=== PATIENT | male | born 1930 | race Caucasian/White ===

== ENCOUNTER 2018-05-21 15:22 | Inpatient (IN) | payer MEDICARE, OTHER ==
[2018-05-21 17:17] LABS: INR-International Normal Ratio 1.3; PTT 33.4 SEC (22.9-36.1); Prothrombin Time 15.9 SEC (12.0-14.7)
--- NOTE | 2018-05-21 17:30 | RAD ---
RADIOGRAPH CHEST 1 VIEW: Date: 05/21/18 Time: 4:20 p.m. HISTORY: 88-year-old male with chest pain. COMPARISON: 05/12/14 FINDINGS: There is a new finding of dense opacification of the right base, with a sharp, horizontal linear supe rior demarcation with the rest of the right lung. There is a small air space density in the right mid lung zone directly superior to this dense opacification. The left lung is relatively clear. Left sub clavian pacemaker. No pulmonary edema or CHF. No pneumothorax. There is mild blunting of the lateral costophrenic angles bilaterally. IMPRESSION: Dense opacification of the right lower lung zone. This probably represents a moderate sized or large right pleural effusion, with underlying consolidation at the right middle lobe and right lower lobe. A lateral view would be useful. PROSPER [] POS: ROLY
[2018-05-21 17:34] LABS: ALT (SGPT) 40 U/L (8-55); AST (SGOT) 30 U/L (5-34); Albumin 4.2 g/dL (3.4-4.8); Alkaline Phosphatase 108 U/L (40-150); Anion Gap 13 mmol/L (10-20); BUN (Urea Nitrogen) 18 mg/dL (8.4-25.7); Bilirubin, Total 1.6 mg/dL (0.2-1.2); Calc. Creatinine Clearance 69 mL/min (70-130); Calcium 9.4 mg/dL (7.8-10.44); Carbon Dioxide 26 mmol/L (23-31); Chloride 94 mmol/L (98-107); Estimated GFR-MDRD 84; Glucose 118 mg/dL (83-110); Potassium 5.1 mmol/L (3.5-5.1); Protein, Total 6.2 g/dL (5.8-8.1); Sodium 128 mmol/L (136-145)
[2018-05-21 17:44] LABS: #Basophils 0.3 thou/uL (0.0-0.2); #Eosinphils 0.1 thou/uL (0.0-0.7); #Monocytes 0.8 thou/uL (0.11-0.59); #Neutrophils 6.3 thou/uL (1.40-6.50); %Lymphocytes 44.4 % (21.0-51.0); %Monocytes 5.6 % (0.0-10.0); Hemoglobin 14.8 g/dL (14.0-18.0); Mean Corpuscular HGB CONC 33.5 g/dL (32.0-36.0); Mean Corpuscular Hemoglobin 35.4 pg (27.0-31.0); Mean Platelet Volume 8.3 fL (7.4-10.4); PLT Morphology Comment Appears Decreased; Platelet Count 108 thou/uL (130-400); RBC Distribution Width 12.7 % (11.5-14.5); Red Blood Cell (RBC) Count 4.17 mill/uL (4.70-6.10); White Blood Cell (WBC) Count 13.4 thou/uL (4.8-10.8)
[2018-05-21] MEDS ORDERED: Acetaminophen 650 MG Suppository PR PRN (17:51)
[2018-05-21] MEDS ORDERED: Bisacodyl 5 MG TAB PO PRN (17:51)
[2018-05-21] MEDS ORDERED: Ondansetron HCl/PF 4 MG/2 ML Vial IVP PRN (17:51)
[2018-05-21] MEDS ORDERED: Ondansetron ODT 4 MG TAB PO PRN (17:51)
[2018-05-21] MEDS ORDERED: Furosemide 40 MG/4 ML VIAL SLOW IVP SCH (18:00)
[2018-05-21 18:31] LABS: CKMB 1.7 ng/mL (0-6.6); Troponin I Less than 0.010 ng/mL (< 0.028)
[2018-05-21] MEDS: Docusate 100 MG CAP PO SCH (20:48)
[2018-05-21] MEDS: Famotidine 20 MG TAB PO SCH (20:49)
[2018-05-21] MEDS: Primidone 50 MG TAB PO SCH (20:49)
[2018-05-21] MEDS: Tamsulosin HCl 0.4 MG CAP PO SCH (20:50)
[2018-05-21] MEDS ORDERED: FINASTERIDE 1 MG PO SCH (21:00)
--- NOTE | 2018-05-22 00:32 | HP ---
PRIMARY CARE PHYSICIAN: Dr. Ramos. OUTPATIENT MATH AND SCIENCES DEPARTMENT CHAIR: Dr. Roca. CHIEF COMPLAINT: Extremity swelling and shortness of breath. HISTORY OF PRESENT ILLNESS: This is an 88-year-old white male with a longstanding history of bradyca rdia with a pacemaker placed back in the ; also with hypertension; and diet-controlled diabetes mellitus, type 2. He reports that, in the past, he has had to be on a fluid pill, Lasix 20 mg daily, that first made him p.o. after then it stopped really helping much, but he has never been told he ceja d congestive heart failure or had any problems with swelling in the past. Over the last 2 months, he has been having increasing lower extremity edema. He was going to see Dr. Roca about this early in the month, but the appointment had to be canceled. He reports that, then over the past 3-4 days, he has had significant worsening of the edema along with some dyspnea on exertion and some intermitt ent episodes of chest tightness. He had this chest tightness noted with exertion, and then also a co uple of times he will wake up at night with chest tightness. He does not report any orthopnea; howev er, and never wakes up severely short of breath. He does report a mild cough for the last few days, but it is a bit dry. He also reports this past week he has been having some mid epigastric and right upper quadrant pain, mostly right before he eats it resolves with eating. The patient denies any ot her symptoms. The patient presented to his PCP, Dr. Ramos's, office today. In the office, he was noted to have pit ting edema, and on the chest x-ray there was a report of right pleural effusion, so he was directly a dmitted to the hospital. PAST MEDICAL HISTORY: 1. Hypertension. 2. Diabetes mellitus, type 2, diet controlled. 3. Bradycardia. 4. Spinal stenosis. PAST SURGICAL HISTORY: 1. Pacemaker placement, . 2. Lumbar spinal surgery for spinal stenosis by Dr. Barber in 2013. SOCIAL HISTORY: The patient is for 66 years. 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 He denies any history of tobacco use up until he started having the edema in his legs. He has been d oing 3 shots of scotch per week. He is normally in good health and gets around well in the home. FAMILY HISTORY: Multiple family members with coronary artery disease when they were older and his mo ther had arthritis. ALLERGIES: The patient denies known drug allergies. In the computer, he is noted to have an allergy to PERCODAN, though he takes aspirin without problems and allergy to DEMEROL AND CODEINE. CURRENT MEDICATIONS: 1. Primidone 175 mg twice a day. 2. Lisinopril 10 mg daily. 3. Furosemide 20 mg each morning. 4. Finasteride 1 mg at night. 5. Propranolol long-acting 160 mg daily. 6. Aspirin 81 mg daily. 7. Tramadol 50 mg q.6 hours. 8. Tamsulosin 0.4 mg twice a day. REVIEW OF SYSTEMS: Constitutional: No fevers and no chills. Eyes: The patient reports that he has intermittent episodes of double vision recently, but no overt blurred vision. ENT: He has had karina estion and nasal drainage for the last 2-3 months, which is common in the spring. No sore throat. C ardiovascular: No chest pain, no palpitations or racing heart. Pulmonary: He had the chest tightne ss and the dyspnea on exertion as per HPI now and the cough, no wheezing. No shortness of breath at rest. Gastrointestinal: See HPI. No nausea or vomiting. No diarrhea. He does tend towards consti pation. Genitourinary: No dysuria or hematuria. No trouble urinating. Musculoskeletal: He has so me low back aching on and off, but no new musculoskeletal complaints. Skin: He has some intermitten t rashes that popped up in various places on his body that spontaneously resolved. No active rash at this time. Neurologic: No numbness, tingling, or focal weakness. PHYSICAL EXAMINATION: VITAL SIGNS: Blood pressure 164/83, pulse 61, respirations 20, O2 sat 100% on room air, temperature 97.9. GENERAL: This is a well-developed, thin elderly white male in no acute distress. HEENT EXAM: Pupils equal, round, and reactive to light. Oropharynx is clear without lesions, erythe ma, or exudate. NECK: Supple, no lymphadenopathy, no thyroid nodules or enlargement. He does have about 5 cm of JVD . HEART: Regular rate and rhythm. No murmurs, rubs, or gallops. LUNGS: He has decreased breath sounds in his right base. No crackles, no wheezing, no increased wor k of breathing at rest. ABDOMEN: Soft, it is mildly tender to palpation in epigastrium and right upper quadrant. No hepatos plenomegaly. No other masses noted. He has normoactive bowel sounds. EXTREMITIES: Patient has 2+ edema up to the knees bilaterally. No clubbing or cyanosis noted. SKIN: No rashes or lesions noted. NEUROLOGIC: He has intact strength and sensation in all extremities and no facial droop. LABORATORY DATA: CBC just drawn shows a white blood cell count of 13,000 with a normal differential, MCV is elevated at 106, and platelet count is low at 108, the remainder was normal. Coagulation pro file shows a PT of 15.9 and INR of 1.3. Complete metabolic panel was notable for a sodium of 128, po tassium of 5.1, chloride of 94, glucose of 118, total bilirubin is elevated at 1.6. His AST, ALT, an d alkaline phosphatase are normal; however, an albumin is normal. Brain natriuretic peptide is eleva gui at 2400. X-ray: I did review the x-ray that was just done on the floor along with the radiologi st's report. It shows a dense opacification of the right lower lung. This is consistent with a mode [id number]-sized right pleural effusion with underlying consolidation of the right middle and righ t lower lobes. There is also some mild blunting of the left costophrenic angle as well. ASSESSMENT: 1. New onset congestive heart failure. The patient is volume overloaded with pleural effusion and l ower extremity edema. We will need to give him a higher dose of Lasix. We will start him on 40 mg I V twice a day and we will place a Barraza, for ease of diuresis. We will get an echocardiogram, an EKG , and a cardiac profile. We will also notify Dr. Roca about the patient's admission, so that he can consult. I am going to put the patient on a low sodium, fluid restricted diet, and gave him a [facility] and dietary advice. 2. Right pleural effusion. At this time, patient does not have significant respiratory compromise. We will see how he does with simple diuresis. If this is not adequate, he may end up needing a thor acentesis. 3. Hypertension. We will resume patient's antihypertensives and we will titrate as needed to get hi s blood pressure under control. I suspect that with the diuresis that this will improve as well. 4. Diet-controlled diabetes. We will put patient on consistent carbohydrates, but given the mild na ture of it, I am not going to check routine blood sugars, just with his morning labs. 5. Elevated bilirubin and the right upper quadrant tenderness. I suspect this is his liver congesti on from his congestive heart failure. We will go ahead and get a right upper quadrant ultrasound to confirm that he does not have any other biliary abnormalities. 6. Gastrointestinal prophylaxis. Put the patient on Pepcid twice a day. 7. Deep venous thrombosis prophylaxis. The patient is on Lovenox and sequential compression devices due to his significant edema. I am going to put him on some compression hose. 8. Code status. I did discuss this with the patient. He is a FULL CODE. Should he be incapacitate d, his would be his medical decision maker, her name is Phuong Ardon. She is actually a reti red nurse and volunteers in ICU at [employer] for the past 30 years.
[2018-05-22] MEDS: Furosemide 40 MG/4 ML VIAL SLOW IVP SCH ×2 (05:45→14:06)
[2018-05-22 05:46] LABS: Anion Gap 11 mmol/L (10-20); BUN (Urea Nitrogen) 17 mg/dL (8.4-25.7); Calc. Creatinine Clearance 76 mL/min (70-130); Calcium 8.5 mg/dL (7.8-10.44); Carbon Dioxide 26 mmol/L (23-31); Chloride 94 mmol/L (98-107); Estimated GFR-MDRD Greater than 90; Glucose 87 mg/dL (83-110); Potassium 4.1 mmol/L (3.5-5.1); Sodium 127 mmol/L (136-145)
[2018-05-22 06:58] LABS: Eosinophils 2 % (0-10); Hemoglobin 12.9 g/dL (14.0-18.0); Lymphocytes 58 % (21-51); MDiff Complete? YES; Mean Platelet Volume 8.2 fL (7.4-10.4); Monocytes 2 % (0-10); Neutrophil 38 % (42-75); PLT Morphology Comment Appears Decreased; Platelet Count 91 thou/uL (130-400); RBC Distribution Width 12.6 % (11.5-14.5); White Blood Cell (WBC) Count 13.2 thou/uL (4.8-10.8)
[2018-05-22] MEDS ORDERED: Enoxaparin Sodium 40 MG/0.4 ML SYRINGE SC SCH (09:00)
[2018-05-22] MEDS ORDERED: Sodium Chloride 0.9% 10 ML ONE ×2 (09:20→13:26)
[2018-05-22] MEDS: Lisinopril 10 MG TAB PO SCH (09:31)
[2018-05-22] MEDS: Primidone 50 MG TAB PO SCH ×2 (09:31→21:50)
[2018-05-22] MEDS: Tamsulosin HCl 0.4 MG CAP PO SCH ×2 (09:31→21:50)
[2018-05-22] MEDS: Famotidine 20 MG TAB PO SCH (09:31)
[2018-05-22] MEDS: Propranolol HCl LA 80 MG CAP PO SCH (09:34)
[2018-05-22] MEDS: Aspirin 81 mg Enteric Coated Tablet PO SCH (09:34)
[2018-05-22] MEDS: Docusate 100 MG CAP PO SCH ×2 (09:34→21:50)
--- NOTE | 2018-05-22 09:35 | ULT ---
SONOGRAM RIGHT UPPER QUADRANT: HISTORY: Right upper quadrant pain. Abnormal liver function tests. FINDINGS: No shadowing stones are apparent within the gallbladder lumen, although there is subtle wall thickeni ng and irregular echogenicity along the gallbladder wall. A small amount of free fluid within the ri ght upper quadrant. The common duct is 0.5 cm. The liver shows no focal abnormalities. Right pleur al fluid is noted. IMPRESSION: 1. 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 No evidence of gallstones or acute biliary obstructio n. 2. A small amount of ascites. Cause is not evident. 3. Right pleural fluid. POS: TPC
--- NOTE | 2018-05-22 10:17 | PDOC.PN ---
- Subjective Encounter Start Date: 05/22/18 (f/u heart failure) Encounter Start Time: 10:16 Subjective: Pt reports feelng more comfortable. Denies any difficulty -: breathing, reports legs are less swollen. Nursing staff have noticed -: that urine appears more tejeda colored - new today. It was clear yesterday - Objective Resuscitation Status: Resuscitation Status FULL:Full Resuscitation Vital Signs & Weight: Vital Signs (12 hours) Temp Pulse Resp BP BP Pulse Ox 05/22/18 09:31 135/67 05/22/18 08:45 97.7 F 60 18 137/65 96 05/22/18 04:31 97.6 F 60 21 H 135/67 97 05/22/18 00:00 97.5 F L 60 18 139/65 98 Weight Weight 174 lb 4.8 oz I&O: 05/21/18 05/22/18 05/23/18 06:59 06:59 06:59 Intake Total 100 Output Total 2200 Balance -2100 Result Diagrams: 05/22/18 04:52 05/22/18 04:52 EKG Reviewed by me: Yes (tele - V paced 60's) Phys Exam - Physical Examination Constitutional: NAD Respiratory: no wheezing, no rales, no rhonchi decreased breath sounds right side at base to mid-lung Cardiovascular: RRR, no significant murmur Gastrointestinal: soft, non-tender, no distention, positive bowel sounds Musculoskeletal: pulses present 2+ edema bilateral LE Neurological: non-focal, moves all 4 limbs upper extremity tremors bilateral Psychiatric: normal affect Skin: no rash Dx/Plan (1) Acute decompensated heart failure Code(s): I50.9 - HEART FAILURE, UNSPECIFIED Status: Acute (2) Pleural effusion, right Code(s): J90 - PLEURAL EFFUSION, NOT ELSEWHERE CLASSIFIED Status: Acute (3) Hypertension Code(s): I10 - ESSENTIAL (PRIMARY) HYPERTENSION Status: Chronic Qualifiers: Hypertension type: essential hypertension Qualified Code(s): I10 - Essential (primary) hypertension (4) Tremor Code(s): R25.1 - TREMOR, UNSPECIFIED Status: Chronic (5) Diabetes Code(s): E11.9 - TYPE 2 DIABETES MELLITUS WITHOUT COMPLICATIONS Status: Chronic Qualifiers: Diabetes mellitus prison insulin use: without parts 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 (6) Elevated bilirubin Code(s): R17 - UNSPECIFIED JAUNDICE Status: Acute (7) Hematuria Code(s): R31.9 - HEMATURIA, UNSPECIFIED Status: Acute Qualifiers: Hematuria type: unspecified type Qualified Code(s): R31.9 - Hematuria, unspecified (8) Hyponatremia Code(s): E87.1 - HYPO-OSMOLALITY AND HYPONATREMIA Status: Chronic (9) Thrombocytopenia Code(s): D69.6 - THROMBOCYTOPENIA, UNSPECIFIED Status: Acute - Plan * New onset heart failure * IV lasix * Continue fluid restriction * Echo and Cardiology consult * current current meds as ordered * Hematuria * No hx of this - may be due to guadarrama catheter - will request Urology eval given worsening noticed by RN * Hyponatremia - chronic by chart review and currently hypervolemic - address volume status with IV lasix * HTN * Continue current meds. * Tremor * Continue current meds * Recommend referral to Dr. Barrett as outpatient for evaluation of this. Niece is noticing this is worse and affecting gait * Elevated Bili * RUQ US shows some abnormality of gall bladder wall - will monitor for symptoms. No evidence of obstruction * * dvt prophy - d/c lovenox as mild thrombocytopenia. Use scd's and encourage ambulation * gi prophy - not indicated * * Code status full * reviewed plan of care iwht patient/family, no questions or further needs at end of eval.
--- NOTE | 2018-05-22 13:03 | CON ---
DATE OF CONSULTATION: 05/22/2018 HISTORY OF PRESENT ILLNESS: This is an 88-year-old white male I am seeing today because of gross hem aturia. He was admitted yesterday in congestive heart failure with difficulty breathing, bilateral l ower extremity edema, scrotal and penile edema. He had a Barraza catheter placed, he said with some di fficulty because of how swollen the penis and foreskin were. He has had some blood in the urine note d I guess last night. I think when the Barraza catheter was first inserted though I do not think there was any blood in the urine, although there is no urinalysis done. He has a mildly elevated white co unt of 13.2. His creatinine is 0.78. PT is 15.9, INR is 1.3. He is on aspirin each day at home, bu t I do not think he is on anything more in terms of blood thinner than aspirin. I think he received Lovenox here, but that has already been stopped. He does have some lower urinary tract symptoms and takes Flomax and finasteride. He is a former patient of Dr. Koehler. I believe I saw him maybe a month or two ago for an initial visit, but I am going to have to check on that. He looks familiar and he says that he believes he saw me, but I will have to review my office records. He is diuresed heavily. He has apparently lost 10 pounds since his admission. Currently, he is afe brile with stable vital signs. He has got good O2 sat on room air. He is no longer short of breath. He is not on any oxygen currently. PAST MEDICAL HISTORY: Diabetes, hypertension, spinal stenosis. He has got a history of bradycardia, had a pacemaker placed for that. PAST SURGICAL HISTORY: Includes a pacemaker and lumbar procedure done for spinal stenosis. He has n ot had any urologic surgery done. ROUTINE MEDICATIONS: Routine medicines are all documented. ALLERGIES: Allergies are all documented. PHYSICAL EXAMINATION: ABDOMEN: His flanks are nontender. His abdomen is soft, nontender. Bladder is not distended. GENITOURINARY: Penis is uncircumcised. There is still a fair amount of penile and scrotal edema. T here are no masses noted. He still has some bilateral lower extremity edema, apparently it is better than it was. His urine is grossly bloody although it is not red blood, it is kind of old brownish c olor now and you can see through it easily in the tubing. I think the bleeding has probably already stopped. I do not think we should workup the hematuria at this point. My guess is it is related to the indwelling catheter and the Lovenox. I can review his records from my office and see if he has n ever had an upper tract study, we can consider an ultrasound, but I do not think that we need to do t hat currently. PLAN: I will go ahead and have a urine culture just set up and just to be sure nothing is growing be fore we take his catheter out and hopefully his diuresis will be over with and we will look at being able to get the catheter out in the next day or two. I will follow along with you.
--- NOTE | 2018-05-22 16:21 | CON ---
DATE OF CONSULTATION: 05/22/2018 HISTORY: Sancho Ardon is a pleasant 88-year-old white male that I have been following for the last 4 years. In 04/2014, he underwent Lexiscan Cardiolite testing prior to lumbar laminectomy. This revealed no ischemia or scar and ejection fraction was approximately 63%. 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 He was placed on telemetry and that night he had a 5.6 second sinus pause. In discussing with him further about all of this, he stated that 2 weeks prior to that admission, he had some visual changes where his vision grew very dark. He thought he was going to pass out. He then underwent placement of a dual chamber pacemaker which is MRI compatible because of his back problems. Echocardiogram prior to pacemaker placement revealed ejection fraction of 50%-55% with mild mitral regurgitation and mild tricuspid regurgitation. He has continued to be followed in the office and has not had any syncopal or near syncopal episodes. His left ventricular function has been followed in the office and was last checked 1 year ago. Echo at that time revealed ejection fraction of 40%-45% with moderate mitral regurgitation, moderate aortic regurgitation, moderate tricuspid regurgitation, and moderate pulmonic regurgitation. He was to be seen this month with a repeat echo. Over the last 2 months, he has begun to notice peripheral edema. Also in the past 2 weeks, he has noted increased shortness of breath. This has progressed to the point where if he walks 10 feet, he would feel very short of breath and has to stop and rest. He denied any chest discomfort. He denied any episodes of PND. He came to the emergency room and was felt to be in heart failure and was admitted for further evaluation. Chest x-ray revealed right pleural effusion. PAST MEDICAL HISTORY: Hypertension, diabetes, longstanding history of bradycardia, spinal stenosis. OPERATIONS: Pacemaker placement in 2013, lumbar laminectomy in 2013. SOCIAL HISTORY: He does not smoke. He has 3 drinks per week. MEDICATIONS AT HOME: Include aspirin 81 daily, finasteride 1 mg at bedtime, furosemide 20 q.a.m., lisinopril 10 daily, primidone 175 b.i.d., propranolol 160 daily, Flomax 0.4 b.i.d. and tramadol. ALLERGIES: CODEINE, DEMEROL and PERCODAN. FAMILY HISTORY: Negative for coronary artery disease. REVIEW OF SYSTEMS: A 12-point review of systems unremarkable. PHYSICAL EXAMINATION: VITAL SIGNS: 141/65, pulse of 60. HEENT: PERRL. NECK: Supple. CHEST: Reveals crackles at the left base and decreased breath sounds at the right base. CARDIOVASCULAR: S1 and S2 are normal. There was no S3 or S4. There is a 1/6 holosystolic murmur at the apex. ABDOMEN: Normal bowel sounds without tenderness. EXTREMITIES: Revealed 2+ pitting edema to the mid tibia. NEUROLOGIC: Grossly intact. SKIN: Warm and dry. IMAGING DATA AND LABORATORY DATA: EKG reveals ventricular pacing. Interrogation of pacemaker revealed that he did go into atrial fibrillation in mid January and has been in it since that time. He is ventricularly paced 100% of the time. His activity level has progressively fallen. Echocardiogram revealed severe left ventricular dysfunction with ejection fraction of 25%-30%. Pacing wire seen in the right ventricle, severe mitral regurgitation, aortic valvular sclerosis, moderate aortic regurgitation, moderate to severe tricuspid regurgitation, and mild pulmonic regurgitation. Hemoglobin 12.9, hematocrit 39.2, white count 13,200, platelets 91,000. INR 1.3, sodium 127, potassium 4.1 , chloride 94, carbon dioxide 26, BUN 17, creatinine 0.78, troponin I less than 0.010. BNP 2409.6. It is of note that 2 weeks ago, cholesterol was 105, triglycerides 46, HDL 38, LDL 58. IMPRESSION: 1. Significant worsening over the last 4 years since pacemaker was placed of his left ventricular function to where his ejection fraction has fallen from 55 % -25%. He now presents with heart failure with right pleural effusion. 2. Acute on chronic systolic heart failure. 3. Status post pacemaker placement in 2013 for 5.6 second sinus pause with history 2 weeks prior to that of near syncopal episode. 4. Hypertension. 5. Diet controlled diabetes. 6. Familial tremor treated with propranolol. 7. History of paroxysmal atrial fibrillation; however, now it appears he has been in atrial fibrillation since mid January. PLAN: Patient will continue to be diuresed with intravenous diuretics. He ultimately will need to be placed on anticoagulation with his atrial fibrillation. It was recommended that he undergo upgrade his pacemaker to a biventricular, resynchronization pacemaker or possibly biventricular ICD. Electrophysiology will be consulted. ELSID
--- NOTE | 2018-05-23 02:42 | CON ---
DATE OF CONSULTATION: 05/22/2018 ELECTROPHYSIOLOGY CONSULTATION REPORT REFERRING PHYSICIAN: Dr. Roca. I am seeing Mr. Ardon at our [facility] telemetry as an electrophysiology integrity consultant. His problems are: 1. Acute on chronic systolic congestive heart failure with resolving fluid overload. A. History of nonischemic cardiomyopathy with LVEF on 05/21/2018 at 25%-30%, severe MR, moderate aortic regurgitation, [id number] tricuspid regurgitation, mild pulmonic regurgitation. 2. 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 3. Hypertension, diabetes. 4. History of spinal stenosis. ALLERGIES: ASPIRIN, CODEINE, MEPERIDINE, OXYCODONE. MEDICATIONS AT HOME: Included aspirin, tamsulosin, propranolol, tramadol, primidone, lisinopril, furosemide, finasteride. SUBJECTIVE: Mr. Ardon is here due to progressive worsening dyspnea, lower extremity swelling, obvious signs of fluid overload. He was admitted on the and has been aggressively diuresed with in's and out's demonstrating over 2 liters of fluid loss overnight. He is feeling much better. He is able to lay flat now. His leg swelling is still present to a mild degree. He had some chest tightness sensation, but not resolved. No fever, chills, or cough. No stroke-like symptoms, no neurological deficits. PND, orthopnea, has resolved as well. REVIEW OF SYSTEMS: Twelve-point system otherwise unremarkable. PAST MEDICAL HISTORY: As above. Patient has been followed by Dr. Roca for many years. He has history of reduced LVEF in the past of 40%-45%, 3-4 years ago. SOCIAL HISTORY: Patient denies smoking. Drinks 3 drinks per week. FAMILY HISTORY: Noncontributory. OBJECTIVE: VITAL SIGNS: Blood pressure is 112/59, heart rate 65, respirations 19, temperature 98 degrees Fahrenheit. GENERAL: He is alert and oriented man in no apparent distress. NECK: Supple. Jugular veins are still slightly distended. Hepatojugular reflux is positive. CHEST: Coarse though without crackles. No crepitations heard. CARDIOVASCULAR: Heart sounds are regular to rate and rhythm at 2/6 holosystolic murmur heard. No gallop is appreciated. The PMI is laterally displaced. ABDOMEN: Benign. Bowel sounds positive. EXTREMITIES: Lower extremity with 1-2+ bilateral edema. No cyanosis noted. MUSCULOSKELETAL: No joint swelling or deformities. SKIN: Without rash. Patient is a wearing hearing aids with obvious hyperacusis. LABORATORY DATA: White cell count 13.2, hemoglobin 12.9, platelet count is 91. INR is 1.3. Sodium 127, potassium 4.1, BUN is 11, creatinine 1.7. The troponin is less than 0.01, BMP yesterday is 24.09. Albumin is 4.2, globulin is 2.0. The EKGs reviewed revealing sinus rhythm with ventricular pacing. EKG reveals atrial fibrillation with ventricular rates pacing. Interrogation of his pacemaker reveals a Pact Advisa DR dual-chamber pacemaker with battery longevity 3 years estimated lead parameters are adequate. A 0.4 millivolts in right atrium over 20 millivolts in right ventricle. Atrial fibrillation ensued persisting since end of January, the event rates are controlled and patient is 100 % ventricularly paced. ASSESSMENT AND PLAN: Mr. Ardon is a pleasant 88-year-old man with history of likely nonischemic cardiomyopathy, previously mildly now severely reduced left ventricular systolic function. He is here due to progressive heart failure like symptoms and now is feeling better after diuresis. His pacemaker is detecting persistent atrial fibrillation, but his ventricular rates are all based. This gentleman could benefit for biventricular pacing, hence the 100% RV pacing causing disynchrony in the left ventricle. I also discussed with him the option of a defibrillator at his advanced age, he would like to proceed with defibrillator as postop-pacemaker understanding reduced benefit of defibrillator at his advanced age. I also discussed the potential risk of infection, bleeding, pneumothorax, tamponade, lead dislodgement, device malfunction, appropriate shocks and he understands and willing to proceed. We will attempt to schedule him for tomorrow. Hence he is improving fluid overload symptoms and likely benefit from biventricular stimulation for recovery from his heart failure. He has atrial fibrillation, newly found adding after optimization of his LV function. Consideration for cardioversion could be made if he can be placed back to anticoagulants. At this point, there is questionable has a slight hematuria after his Barraza placement. We will follow with you. Thank you for allowing me to participate in the care of this patient. MARII
[2018-05-23 04:59] LABS: ALT (SGPT) 33 U/L (8-55); AST (SGOT) 28 U/L (5-34); Albumin 3.5 g/dL (3.4-4.8); Alkaline Phosphatase 96 U/L (40-150); Anion Gap 14 mmol/L (10-20); BUN (Urea Nitrogen) 20 mg/dL (8.4-25.7); Bilirubin, Total 1.4 mg/dL (0.2-1.2); Calc. Creatinine Clearance 68 mL/min (70-130); Calcium 8.6 mg/dL (7.8-10.44); Carbon Dioxide 26 mmol/L (23-31); Chloride 92 mmol/L (98-107); Estimated GFR-MDRD 84; Globulin 1.9 g/dL (2.4-3.5); Glucose 100 mg/dL (83-110); Protein, Total 5.4 g/dL (5.8-8.1); Sodium 128 mmol/L (136-145)
[2018-05-23] MEDS: Furosemide 40 MG/4 ML VIAL SLOW IVP SCH ×2 (05:48→18:17)
[2018-05-23 06:13] LABS: Band 1 % (5-11); Eosinophils 2 % (0-10); Hemoglobin 14.2 g/dL (14.0-18.0); Lymphocytes 51 % (21-51); MDiff Complete? YES; Macrocytosis SLIGHT = 6-15 cells (100X) (0-5/hpf); Mean Corpuscular HGB CONC 34.1 g/dL (32.0-36.0); Mean Corpuscular Hemoglobin 35.6 pg (27.0-31.0); Monocytes 5 % (0-10); Neutrophil 41 % (42-75); PLT Morphology Comment Appears Decreased; Platelet Count 96 thou/uL (130-400); RBC Distribution Width 12.6 % (11.5-14.5); Red Blood Cell (RBC) Count 3.98 mill/uL (4.70-6.10); White Blood Cell (WBC) Count 14.2 thou/uL (4.8-10.8)
[2018-05-23] MEDS: Tamsulosin HCl 0.4 MG CAP PO SCH ×2 (09:51→21:21)
[2018-05-23] MEDS: Docusate 100 MG CAP PO SCH ×2 (09:54→21:21)
[2018-05-23] MEDS: Lisinopril 10 MG TAB PO SCH ×2 (09:54→21:20)
[2018-05-23] MEDS: Aspirin 81 mg Enteric Coated Tablet PO SCH (09:54)
[2018-05-23] MEDS: Primidone 50 MG TAB PO SCH ×2 (09:54→21:21)
[2018-05-23] MEDS: Propranolol HCl LA 80 MG CAP PO SCH (11:08)
[2018-05-23] MEDS ORDERED: Lidocaine 1% (PF) 30 ML VIAL ONE (14:37)
[2018-05-23] MEDS ORDERED: CEFAZOLIN/Water 2 GM/20 ML SYRINGE ONE (14:38)
[2018-05-23] MEDS ORDERED: PHENYLEPHRINE-NS 100 MCG/ML 10 ML SYRINGE ONE ×2 (16:09→17:09)
[2018-05-23] MEDS ORDERED: PROPOFOL 200 MG/20 ML VIAL ONE (16:09)
[2018-05-23] MEDS ORDERED: Promethazine HCl 25 MG/ML VIAL IM PRN (17:09)
[2018-05-23] MEDS ORDERED: Promethazine HCl 25 MG/ML VIAL SLOW IVP PRN (17:09)
[2018-05-23] MEDS ORDERED: Phenylephrine HCL 10 MG/ML VIAL IV PRN (17:09)
[2018-05-23] MEDS ORDERED: Ondansetron HCl/PF 4 MG/2 ML Vial IVP PRN (17:09)
--- NOTE | 2018-05-23 20:30 | PDOC.PN ---
- Subjective Encounter Start Date: 05/23/18 Encounter Start Time: 10:00 Patient not seen - in procedure. - Objective Resuscitation Status: Resuscitation Status FULL:Full Resuscitation MAR Reviewed: Yes Vital Signs & Weight: Vital Signs (12 hours) Temp Pulse Pulse Pulse Resp BP BP 05/23/18 18:00 97.0 F L 60 16 05/23/18 11:21 97.6 F 60 18 05/23/18 10:50 76 70 142/78 H 05/23/18 09:54 147/70 H 05/23/18 08:59 97.9 F 60 18 BP BP Pulse Ox Pulse Ox Pulse Ox 05/23/18 18:00 162/73 H 94 L 05/23/18 11:21 148/69 H 99 05/23/18 10:50 141/69 H 98 99 05/23/18 09:54 05/23/18 08:59 147/70 H 98 Weight Weight 174 lb I&O: 05/22/18 05/23/18 05/24/18 06:59 06:59 06:59 Intake Total 100 970 240 Output Total 2200 4600 2800 Balance -2100 -1590 2560 Result Diagrams: 05/23/18 03:58 05/23/18 03:58 EKG Reviewed by me: Yes (paced) Dx/Plan (1) Acute decompensated heart failure Code(s): I50.9 - HEART FAILURE, UNSPECIFIED Status: Acute - Plan DVT proph w/SCDs Pt is undergoing pacemaker upgrade and prob AICD today -: Cardio/EP following -: Will d/w Cardiology if Propanolol can be changed to Coreg due to CHF Review of Systems - Medications/Allergies Allergies/Adverse Reactions: Allergies Allergy/AdvReac Type Severity Reaction Status Date / Time codeine Allergy Hives Verified 05/06/14 09:02 meperidine HCl [From Demerol] Allergy BP dropped Verified 05/24/18 08:50 oxycodone HCl [From Percodan] Allergy Rash Verified 05/06/14 09:02 oxycodone terephthalate Allergy Rash Verified 05/06/14 09:02 [From Percodan] Sulfa (Sulfonamide Allergy Verified 05/24/18 08:49 Antibiotics) Medications: Current Medications Acetaminophen (Tylenol) 650 mg PO Q4H PRN PRN Reason: Headache/Fever or Pain Acetaminophen (Tylenol) 650 mg NE Q4H PRN PRN Reason: Headache/Fever or Pain Apixaban (Eliquis) 5 mg PO BID [facility] Aspirin (Ecotrin) 81 mg PO DAILY [facility] Last Admin: 05/23/18 09:54 Dose: 81 mg Bisacodyl (Dulcolax) 10 mg PO DAILYPRN PRN PRN Reason: Constipation Docusate Sodium (Colace) 100 mg PO BID [facility] Last Admin: 05/23/18 09:54 Dose: 100 mg Furosemide (Lasix) 40 mg PO DAILY-AC [facility] Lisinopril (Zestril) 10 mg PO BID [facility] (Finasteride [ (Finasteride] 1 Mg)) 1 mg PO HS [facility] Ondansetron HCl (Zofran Odt) 4 mg PO Q6H PRN PRN Reason: Nausea/Vomiting Ondansetron HCl (Zofran) 4 mg IVP Q6H PRN PRN Reason: Nausea/Vomiting Primidone (Mysoline) 175 mg PO BID [facility] Last Admin: 05/23/18 09:54 Dose: 175 mg Propranolol HCl (Inderal La) 160 mg PO DAILY [facility] Last Admin: 05/23/18 11:08 Dose: Not Given Tamsulosin HCl (Flomax) 0.4 mg PO BID [facility] Last Admin: 05/23/18 09:51 Dose: 0.4 mg Tramadol HCl (Ultram) 50 mg PO Q6H PRN PRN Reason: Pain
[2018-05-23] MEDS ORDERED: Apixaban 5 MG TAB PO SCH (21:00)
[2018-05-23] MEDS: traMADol HCl 50 MG TAB PO PRN (21:25)
[2018-05-24] MEDS: Acetaminophen 325 MG TAB PO PRN (01:54)
[2018-05-24] MEDS: traMADol HCl 50 MG TAB PO PRN ×2 (04:31→09:09)
[2018-05-24 04:59] VITALS: BMI 26.6
[2018-05-24] MEDS: Furosemide 40 MG TAB PO SCH (08:50)
[2018-05-24] MEDS: Aspirin 81 mg Enteric Coated Tablet PO SCH (08:50)
[2018-05-24] MEDS: Lisinopril 10 MG TAB PO SCH ×2 (08:51→20:33)
[2018-05-24] MEDS: Docusate 100 MG CAP PO SCH ×2 (08:51→20:34)
[2018-05-24] MEDS: Propranolol HCl LA 80 MG CAP PO SCH (08:52)
[2018-05-24] MEDS: Tamsulosin HCl 0.4 MG CAP PO SCH ×2 (08:53→20:33)
[2018-05-24] MEDS: Primidone 50 MG TAB PO SCH ×2 (08:53→20:30)
--- NOTE | 2018-05-24 09:58 | PDOC.CTH ---
<Joyce Dash - Last Filed: 05/24/18 09:52> Cardiology Progress Note - Subjective Patient without complaints. s/p upgrade from PPM to BiV ICD yesterday. Reports he got lightheaded when he took pain meds last night. 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 Right pleural effusion 2. Acute systolic CHF 3. NICMO - EF most recently 25% and probably down due to RV pacing. S/P upgrade to BiV ICD yesterday. 4. HTN 5. paroxysmal AF Overall stable. Hematoma over ICD site not enlarging. Continue to monitor and optimize meds. Will change propanolol to Coreg. Continue Eliquis, but may have to hold if hematoma enlarges. <Henrry Jaime - Last Filed: 05/24/18 15:04> Cardiology Progress Note - Objective Vital Signs Temp Pulse Pulse Pulse Resp BP BP 05/24/18 12:59 97.7 F 60 16 05/24/18 10:01 60 60 113/58 L 05/24/18 08:51 153/74 H 05/24/18 08:46 97.7 F 60 16 06/23/18 08:15 97.7 F 80 16 05/24/18 04:00 97.5 F L 60 20 BP BP Pulse Ox Pulse Ox Pulse Ox 05/24/18 12:59 119/57 L 95 05/24/18 10:01 132/63 96 94 L 05/24/18 08:51 05/24/18 08:46 153/74 H 97 05/24/18 08:15 97 05/24/18 04:00 132/63 97 Weight 159 lb 05/23/18 05/24/18 05/25/18 06:59 06:59 06:59 Intake Total 970 540 Output Total 4600 5250 Balance -2772 -4617 - Labs Result Diagrams: 05/23/18 03:58 05/23/18 03:58 Troponin/CKMB CK-MB (CK-2) 1.7 ng/mL (0-6.6) 05/21/18 17:04 Troponin I Less than 0.010 ng/mL (< 0.028) 05/21/18 17:04 - Assessment/Plan Pt personally seen, evaluated and examined by myself Hematoma appears improved. Continue with diuresis.
--- NOTE | 2018-05-24 13:17 | PDOC.PN ---
- Subjective Encounter Start Date: 05/24/18 Encounter Start Time: 13:20 patient seen and examined. H/O NICM with reduced EF and CHF. Being diuresed and responding. Pacemaker upgrated to biventricular ICD this admission. Doing well and no signs of infection at site. No complaints today and no acute events overnight. - Objective Resuscitation Status: Resuscitation Status FULL:Full Resuscitation MAR Reviewed: Yes Vital Signs & Weight: Vital Signs (12 hours) Temp Pulse Pulse Pulse Resp BP BP 05/24/18 12:59 97.7 F 60 16 05/24/18 10:01 60 60 113/58 L 05/24/18 08:51 153/74 H 05/24/18 08:46 97.7 F 60 16 05/24/18 08:15 97.7 F 80 16 05/24/18 04:00 97.5 F L 60 20 BP BP Pulse Ox Pulse Ox Pulse Ox 05/24/18 12:59 119/57 L 95 05/24/18 10:01 132/63 96 94 L 05/24/18 08:51 05/24/18 08:46 153/74 H 97 05/24/18 08:15 97 05/24/18 04:00 132/63 97 Weight Weight 159 lb I&O: 05/23/18 05/24/18 05/25/18 06:59 06:59 06:59 Intake Total 970 540 Output Total 4600 5250 Balance -9550 -3940 Result Diagrams: 05/23/18 03:58 05/23/18 03:58 Phys Exam - Physical Examination Constitutional: NAD HEENT: moist MMs, sclera anicteric Neck: no JVD, supple, full ROM Respiratory: no wheezing, no rales, no rhonchi, clear to auscultation bilateral Cardiovascular: no significant murmur, no rub Irregular rhythm, regular rate. Gastrointestinal: soft, non-tender, no distention, positive bowel sounds Musculoskeletal: pulses present, edema present Neurological: non-focal, moves all 4 limbs Psychiatric: normal affect, A&O x 3 Skin: no rash, normal turgor Dx/Plan (1) Acute decompensated heart failure Code(s): I50.9 - HEART FAILURE, UNSPECIFIED Status: Acute Comment: Systolic with EF 25-35%. Diuresing well. (2) NICM (nonischemic cardiomyopathy) Code(s): I42.8 - OTHER CARDIOMYOPATHIES Status: Chronic (3) Severe mitral regurgitation Code(s): I34.0 - NONRHEUMATIC MITRAL (VALVE) INSUFFICIENCY Status: Chronic (4) Paroxysmal atrial fibrillation Code(s): I48.0 - PAROXYSMAL ATRIAL FIBRILLATION Status: Chronic Comment: rate controlled. Continue Eliquis. Watch closely for bleeding. (5) S/P ICD (internal cardiac defibrillator) procedure Status: Acute (6) Pleural effusion, right Code(s): J90 - PLEURAL EFFUSION, NOT ELSEWHERE CLASSIFIED Status: Acute Comment: Continue diuresis. (7) Thrombocytopenia Code(s): D69.6 - THROMBOCYTOPENIA, UNSPECIFIED Status: Acute Comment: No signs of bleeding. Cautiously on Eliquis. (8) Hypertension Code(s): I10 - ESSENTIAL (PRIMARY) HYPERTENSION Status: Chronic Qualifiers: Hypertension type: essential hypertension Qualified Code(s): I10 - Essential (primary) hypertension (9) Hyponatremia Code(s): E87.1 - HYPO-OSMOLALITY AND HYPONATREMIA Status: Chronic Comment: Stable. Asymptomatic. - Plan cont current plan of care, guadarrama catheter, out of bed/ambulate * . Review of Systems - Medications/Allergies Allergies/Adverse Reactions: Allergies Allergy/AdvReac Type Severity Reaction Status Date / Time codeine Allergy Hives Verified 05/06/14 09:02 meperidine HCl [From Demerol] Allergy BP dropped Verified 05/24/18 08:50 oxycodone HCl [From Percodan] Allergy Rash Verified 05/06/14 09:02 oxycodone terephthalate Allergy Rash Verified 05/06/14 09:02 [From Percodan] Sulfa (Sulfonamide Allergy Verified 05/24/18 08:49 Antibiotics) Medications: Current Medications Acetaminophen (Tylenol) 650 mg PO Q4H PRN PRN Reason: Headache/Fever or Pain Last Admin: 05/24/18 01:54 Dose: 650 mg Acetaminophen (Tylenol) 650 mg [place] Q4H PRN PRN Reason: Headache/Fever or Pain Apixaban (Eliquis) 5 mg PO BID [facility] Aspirin (Ecotrin) 81 mg PO DAILY [facility] Last Admin: 05/24/18 08:50 Dose: 81 mg Bisacodyl (Dulcolax) 10 mg PO DAILYPRN PRN PRN Reason: Constipation Carvedilol (Coreg) 6.25 mg PO BID-[facility] Docusate Sodium (Colace) 100 mg PO BID [facility] Last Admin: 05/24/18 08:51 Dose: 100 mg Furosemide (Lasix) 40 mg PO DAILY-AC [facility] Last Admin: 05/24/18 08:50 Dose: 40 mg Lisinopril (Zestril) 10 mg PO BID [facility] Last Admin: 05/24/18 08:51 Dose: 10 mg (Finasteride [ (Finasteride] 1 Mg)) 1 mg PO [facility] Ondansetron HCl (Zofran Odt) 4 mg PO Q6H PRN PRN Reason: Nausea/Vomiting Ondansetron HCl (Zofran) 4 mg IVP Q6H PRN PRN Reason: Nausea/Vomiting Primidone (Mysoline) 175 mg PO BID [facility] Last Admin: 05/24/18 08:53 Dose: 175 mg Tamsulosin HCl (Flomax) 0.4 mg PO BID [facility] Last Admin: 05/24/18 08:53 Dose: 0.4 mg Tramadol HCl (Ultram) 50 mg PO Q6H PRN PRN Reason: Pain Last Admin: 05/24/18 09:09 Dose: 50 mg
[2018-05-24 16:26] LABS: Bilirubin Negative (Negative); Blood, Urine Large (Negative); Clarity CLEAR (Clear); Glucose, Urine (Dipstick) Negative (Negative); Leukocyte Moderate (Negative); Nitrite Negative (Negative); Protein, Urine (Dipstick) Negative (Neg-Trace); Specific Gravity, Urine 1.012 (1.002-1.036)
[2018-05-24 16:29] LABS: Bacteria/HPF None Seen HPF (None Seen); Hyaline Casts/LPF 0-3 HYALINE CAST LPF (0-3 Hyaline); Pathc Cast-AUWi Flag 0.43 (0-2.49); Squamous Epithelial 0-3 HPF (0-3)
[2018-05-24 16:31] LABS: Yeast-AUWi Flag 39.5 (0-25.0)
[2018-05-24 16:39] LABS: Yeast-All Forms None Seen HPF (None Seen)
[2018-05-24] MEDS: Carvedilol 6.25 MG TAB PO SCH (16:39)
--- NOTE | 2018-05-24 16:50 | RAD ---
PORTABLE CHEST ONE VIEW 05/24/18 at 3:41 p.m. HISTORY: Pacemaker replacement. FINDINGS/IMPRESSION: Comparison is made with the exam of 05/21/18. Left sided AICD remains in place. The heart size is enlarged. Opacification in the right lower lung i s again seen. No pneumothoraces are identified. Small bilateral pleural effusions may be present. POS: [facility]
[2018-05-24] MEDS ORDERED: Apixaban 5 MG TAB PO SCH (21:00)
[2018-05-25 06:50] LABS: Anion Gap 12 mmol/L (10-20); BUN (Urea Nitrogen) 17 mg/dL (8.4-25.7); Calc. Creatinine Clearance 69 mL/min (70-130); Calcium 8.8 mg/dL (7.8-10.44); Carbon Dioxide 30 mmol/L (23-31); Chloride 89 mmol/L (98-107); Estimated GFR-MDRD Greater than 90; Glucose 114 mg/dL (83-110); Potassium 3.8 mmol/L (3.5-5.1); Sodium 127 mmol/L (136-145)
[2018-05-25 07:32] LABS: Band 3 % (5-11); Eosinophils 2 % (0-10); Hemoglobin 13.4 g/dL (14.0-18.0); Lymphocytes 47 % (21-51); MDiff Complete? YES; Mean Corpuscular HGB CONC 33.7 g/dL (32.0-36.0); Mean Corpuscular Hemoglobin 35.4 pg (27.0-31.0); Monocytes 8 % (0-10); Neutrophil 40 % (42-75); PLT Morphology Comment Appears Decreased; Platelet Count 102 thou/uL (130-400); RBC Distribution Width 12.3 % (11.5-14.5); Red Blood Cell (RBC) Count 3.79 mill/uL (4.70-6.10); White Blood Cell (WBC) Count 16.6 thou/uL (4.8-10.8)
[2018-05-25] MEDS: Furosemide 40 MG TAB PO SCH (08:19)
[2018-05-25] MEDS: Carvedilol 6.25 MG TAB PO SCH ×2 (08:19→16:48)
[2018-05-25] MEDS: Primidone 50 MG TAB PO SCH ×2 (08:20→19:50)
[2018-05-25] MEDS: Aspirin 81 mg Enteric Coated Tablet PO SCH (08:20)
[2018-05-25] MEDS: Lisinopril 10 MG TAB PO SCH ×2 (08:20→19:50)
[2018-05-25] MEDS: Docusate 100 MG CAP PO SCH ×2 (08:20→19:50)
[2018-05-25] MEDS: Tamsulosin HCl 0.4 MG CAP PO SCH ×2 (08:20→19:50)
--- NOTE | 2018-05-25 10:32 | PDOC.CTH ---
Cardiology Progress Note - Subjective c/o pain to ICD site due to hematoma. Otherwise walking in [place] regularly without problems. Denies any CP or SOB. 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 Hematoma to left chest/shoulder from ICD placement 2. Right pleural effusion 3. Acute systolic CHF 4. NICMO - EF most recently 25% and probably down due to RV pacing. S/P upgrade to BiV ICD 05/23. 5. HTN 6. paroxysmal AF CHF symptoms improved. Hematoma without enlargement overnight. Eliquis held. Possibly resume tonight. Plan discharge in 1-2 days.
[2018-05-25] MEDS: Acetaminophen 325 MG TAB PO PRN (10:51)
--- NOTE | 2018-05-25 12:56 | PDOC.PN ---
- Subjective Encounter Start Date: 05/25/18 Encounter Start Time: 12:55 Seen and examined. H/O NICM with reduced EF and admitted for CHF exacerbation. Being diuresed and responding. Pacemaker upgraded to biventricular ICD this admission. Doing well and no signs of infection at site but developed a hematoma at site so Eliquis was held. No complaints today and no acute events overnight. - Objective Resuscitation Status: Resuscitation Status FULL:Full Resuscitation MAR Reviewed: Yes Vital Signs & Weight: Vital Signs (12 hours) Temp Pulse Pulse Pulse Resp BP BP 05/25/18 09:04 60 60 134/63 150/70 H 05/25/18 08:15 98.1 F 60 18 05/25/18 08:13 98.1 F 60 18 05/25/18 04:00 97.4 F L 60 18 BP Pulse Ox Pulse Ox Pulse Ox 05/25/18 09:04 95 97 05/25/18 08:15 96 05/25/18 08:13 148/68 H 96 05/25/18 04:00 148/67 H 90 L Weight Weight 158 lb 8 oz I&O: 05/24/18 05/25/18 05/26/18 06:59 06:59 06:59 Intake Total 540 880 Output Total 5250 1050 Balance -4710 -170 Result Diagrams: 05/25/18 05:36 05/25/18 05:36 Phys Exam - Physical Examination Constitutional: NAD HEENT: moist MMs, sclera anicteric Neck: no JVD, supple, full ROM Respiratory: no wheezing, no rales, no rhonchi, clear to auscultation bilateral Cardiovascular: RRR, no significant murmur, no rub hematoma at AICD site. Gastrointestinal: soft, non-tender, no distention, positive bowel sounds Musculoskeletal: no edema, pulses present Neurological: non-focal, moves all 4 limbs Psychiatric: normal affect, A&O x 3 Skin: no rash, normal turgor Dx/Plan (1) Acute decompensated heart failure Code(s): I50.9 - HEART FAILURE, UNSPECIFIED Status: Acute Comment: Systolic with EF 25-35%. Diuresing well on PO furosemide. (2) NICM (nonischemic cardiomyopathy) Code(s): I42.8 - OTHER CARDIOMYOPATHIES Status: Chronic Comment: AICD in place (3) Severe mitral regurgitation Code(s): I34.0 - NONRHEUMATIC MITRAL (VALVE) INSUFFICIENCY Status: Chronic (4) Paroxysmal atrial fibrillation Code(s): I48.0 - PAROXYSMAL ATRIAL FIBRILLATION Status: Chronic Comment: rate controlled. Eliquis held 2/2 hematoma. (5) S/P ICD (internal cardiac defibrillator) procedure Status: Acute (6) Pleural effusion, right Code(s): J90 - PLEURAL EFFUSION, NOT ELSEWHERE CLASSIFIED Status: Acute Comment: Continue diuresis. (7) Thrombocytopenia Code(s): D69.6 - THROMBOCYTOPENIA, UNSPECIFIED Status: Acute Comment: No signs of bleeding. Cautiously on Eliquis. (8) Hypertension Code(s): I10 - ESSENTIAL (PRIMARY) HYPERTENSION Status: Chronic Qualifiers: Hypertension type: essential hypertension Qualified Code(s): I10 - Essential (primary) hypertension (9) Hyponatremia Code(s): E87.1 - HYPO-OSMOLALITY AND HYPONATREMIA Status: Chronic Comment: Stable. Asymptomatic. (10) Hematoma complicating a procedure Code(s): [id number] - Status: Acute [facility] - Plan cont current plan of care, guadarrama catheter, out of bed/ambulate Doing well. Likely discharge within 48 hours. Review of Systems - Medications/Allergies Allergies/Adverse Reactions: Allergies Allergy/AdvReac Type Severity Reaction Status Date / Time codeine Allergy Hives Verified 05/06/14 09:02 meperidine HCl [From Demerol] Allergy BP dropped Verified 05/24/18 08:50 oxycodone HCl [From Percodan] Allergy Rash Verified 05/06/14 09:02 oxycodone terephthalate Allergy Rash Verified 05/06/14 09:02 [From Percodan] Sulfa (Sulfonamide Allergy Verified 05/24/18 08:49 Antibiotics) Medications: Current Medications Acetaminophen (Tylenol) 650 mg PO Q4H PRN PRN Reason: Headache/Fever or Pain Last Admin: 05/25/18 10:51 Dose: 650 mg Acetaminophen (Tylenol) 650 mg [place] Q4H PRN PRN Reason: Headache/Fever or Pain Hydrocodone Bitart/Acetaminophen ([place] 5/325) 1 tab PO Q4H PRN PRN Reason: Pain Aspirin (Ecotrin) 81 mg PO DAILY NEL Last Admin: 05/25/18 08:20 Dose: 81 mg Bisacodyl (Dulcolax) 10 mg PO DAILYPRN PRN PRN Reason: Constipation Carvedilol (Coreg) 6.25 mg PO BID-[facility] Last Admin: 05/25/18 08:19 Dose: 6.25 mg Docusate Sodium (Colace) 100 mg PO BID [facility] Last Admin: 05/25/18 08:20 Dose: 100 mg Furosemide (Lasix) 40 mg PO DAILY-AC [facility] Last Admin: 05/25/18 08:19 Dose: 40 mg Levofloxacin (Levaquin) 750 mg PO 0600 [facility] Lisinopril (Zestril) 10 mg PO BID [facility] Last Admin: 05/25/18 08:20 Dose: 10 mg (Finasteride [ (Finasteride] 1 Mg)) 1 mg PO HS [facility] Ondansetron HCl (Zofran Odt) 4 mg PO Q6H PRN PRN Reason: Nausea/Vomiting Ondansetron HCl (Zofran) 4 mg IVP Q6H PRN PRN Reason: Nausea/Vomiting Primidone (Mysoline) 175 mg PO BID [facility] Last Admin: 05/25/18 08:20 Dose: 175 mg Tamsulosin HCl (Flomax) 0.4 mg PO BID [facility] Last Admin: 05/25/18 08:20 Dose: 0.4 mg Tramadol HCl (Ultram) 50 mg PO Q6H PRN PRN Reason: Pain Last Admin: 05/24/18 09:09 Dose: 50 mg
[2018-05-26] MEDS: HYDROcodone/Acetaminophen 5/325 mg Tablet PO PRN ×3 (01:06→20:12)
[2018-05-26 04:34] LABS: Anion Gap 11 mmol/L (10-20); BUN (Urea Nitrogen) 22 mg/dL (8.4-25.7); Calc. Creatinine Clearance 69 mL/min (70-130); Calcium 8.7 mg/dL (7.8-10.44); Carbon Dioxide 28 mmol/L (23-31); Chloride 90 mmol/L (98-107); Estimated GFR-MDRD Greater than 90; Glucose 120 mg/dL (83-110); Sodium 125 mmol/L (136-145)
[2018-05-26 06:59] LABS: Band 4 % (5-11); Eosinophils 1 % (0-10); Hemoglobin 12.8 g/dL (14.0-18.0); Lymphocytes 46 % (21-51); MDiff Complete? YES; Mean Corpuscular HGB CONC 34.8 g/dL (32.0-36.0); Mean Corpuscular Hemoglobin 36.1 pg (27.0-31.0); Mean Platelet Volume 7.7 fL (7.4-10.4); Monocytes 6 % (0-10); Neutrophil 43 % (42-75); PLT Morphology Comment Appears Decreased; Platelet Count 113 thou/uL (130-400); RBC Distribution Width 12.3 % (11.5-14.5); Red Blood Cell (RBC) Count 3.54 mill/uL (4.70-6.10); White Blood Cell (WBC) Count 15.7 thou/uL (4.8-10.8)
[2018-05-26] MEDS: Docusate 100 MG CAP PO SCH ×2 (08:38→20:08)
[2018-05-26] MEDS: Furosemide 40 MG TAB PO SCH (08:38)
[2018-05-26] MEDS: Carvedilol 6.25 MG TAB PO SCH ×3 (08:38→20:08)
[2018-05-26] MEDS: Aspirin 81 mg Enteric Coated Tablet PO SCH (08:38)
[2018-05-26] MEDS: Lisinopril 10 MG TAB PO SCH ×2 (08:39→20:08)
[2018-05-26] MEDS: Primidone 50 MG TAB PO SCH ×2 (08:40→20:07)
[2018-05-26] MEDS: Tamsulosin HCl 0.4 MG CAP PO SCH ×2 (08:41→20:08)
--- NOTE | 2018-05-26 09:51 | PDOC.PN ---
- Subjective Encounter Start Date: 05/26/18 Encounter Start Time: 16:52 Patient seen and examined. Admitted with new CHF onset w exacerbation and had ICD implanted in hospital. Discharge delayed by hematoma at ICD site. Otherwise doing well and has no complaints. - Objective Resuscitation Status: Resuscitation Status FULL:Full Resuscitation Vital Signs & Weight: Vital Signs (12 hours) Temp Pulse Resp BP Pulse Ox 05/26/18 07:35 97.5 F L 60 20 163/76 H 96 05/26/18 04:00 97.3 F L 60 12 146/63 H 94 L Weight Weight 160 lb I&O: 05/25/18 05/26/18 05/27/18 06:59 06:59 06:59 Intake Total 880 1080 Output Total 1050 1850 Balance -170 -770 Result Diagrams: 05/26/18 03:28 05/26/18 03:28 Dx/Plan (1) Acute decompensated heart failure Code(s): I50.9 - HEART FAILURE, UNSPECIFIED Status: Acute Comment: Stable. Systolic with EF 25-35%. Continue PO furosemide. ICD in place. (2) NICM (nonischemic cardiomyopathy) Code(s): I42.8 - OTHER CARDIOMYOPATHIES Status: Chronic Comment: ICD in place (3) Severe mitral regurgitation Code(s): I34.0 - NONRHEUMATIC MITRAL (VALVE) INSUFFICIENCY Status: Chronic (4) Paroxysmal atrial fibrillation Code(s): I48.0 - PAROXYSMAL ATRIAL FIBRILLATION Status: Chronic Comment: Rate controlled. Eliquis not started 2/2 hematoma. (5) S/P ICD (internal cardiac defibrillator) procedure Status: Acute (6) Thrombocytopenia Code(s): D69.6 - THROMBOCYTOPENIA, UNSPECIFIED Status: Acute Comment: No signs of bleeding. Cautiously on Eliquis. (7) Hypertension Code(s): I10 - ESSENTIAL (PRIMARY) HYPERTENSION Status: Chronic Qualifiers: Hypertension type: essential hypertension Qualified Code(s): I10 - Essential (primary) hypertension (8) Hyponatremia Code(s): E87.1 - HYPO-OSMOLALITY AND HYPONATREMIA Status: Chronic Comment: Stable. Asymptomatic. (9) Hematoma complicating a procedure Code(s): LAP6345 - Status: Acute Comment: At ICD site. - Plan cont current plan of care, guadarrama catheter, continue antibiotics, out of bed/ ambulate, DVT proph w/SCDs Patient's CHF resolved but he developed a hematoma at ICD site which is being monitored and hindering intitating Eliquis. f/u with cardiology re discharge planning. Continue Levofloxacin for possible PNA. Review of Systems - Medications/Allergies Allergies/Adverse Reactions: Allergies Allergy/AdvReac Type Severity Reaction Status Date / Time codeine Allergy Hives Verified 05/06/14 09:02 meperidine HCl [From Demerol] Allergy BP dropped Verified 05/24/18 08:50 oxycodone HCl [From Percodan] Allergy Rash Verified 05/06/14 09:02 oxycodone terephthalate Allergy Rash Verified 05/06/14 09:02 [From Percodan] Sulfa (Sulfonamide Allergy Verified 05/24/18 08:49 Antibiotics) Medications: Current Medications Acetaminophen (Tylenol) 650 mg PO Q4H PRN PRN Reason: Headache/Fever or Pain Last Admin: 05/25/18 10:51 Dose: 650 mg Acetaminophen (Tylenol) 650 mg [place] Q4H PRN PRN Reason: Headache/Fever or Pain Hydrocodone Bitart/Acetaminophen ([place] 5/325) 1 tab PO Q4H PRN PRN Reason: Pain Last Admin: 05/26/18 01:06 Dose: 1 tab Aspirin (Ecotrin) 81 mg PO DAILY [facility] Last Admin: 05/26/18 08:38 Dose: 81 mg Bisacodyl (Dulcolax) 10 mg PO DAILYPRN PRN PRN Reason: Constipation Last Admin: 05/25/18 16:49 Dose: 10 mg Carvedilol (Coreg) 6.25 mg PO TID [facility] Docusate Sodium (Colace) 100 mg PO BID [facility] Last Admin: 05/26/18 08:38 Dose: 100 mg Furosemide (Lasix) 40 mg PO DAILY-AC [facility] Last Admin: 05/26/18 08:38 Dose: 40 mg Levofloxacin (Levaquin) 750 mg PO 0600 [facility] Last Admin: 05/26/18 05:03 Dose: 750 mg Lisinopril (Zestril) 10 mg PO BID [facility] Last Admin: 05/26/18 08:39 Dose: 10 mg (Finasteride [ (Finasteride] 1 Mg)) 1 mg PO [facility] Ondansetron HCl (Zofran Odt) 4 mg PO Q6H PRN PRN Reason: Nausea/Vomiting Ondansetron HCl (Zofran) 4 mg IVP Q6H PRN PRN Reason: Nausea/Vomiting Primidone (Mysoline) 175 mg PO BID [facility] Last Admin: 05/26/18 08:40 Dose: 175 mg Tamsulosin HCl (Flomax) 0.4 mg PO BID [facility] Last Admin: 05/26/18 08:41 Dose: 0.4 mg Tramadol HCl (Ultram) 50 mg PO Q6H PRN PRN Reason: Pain Last Admin: 05/24/18 09:09 Dose: 50 mg
[2018-05-26] MEDS ORDERED: Iopamidol 370 76% 50 ML VIAL FS ONE (12:33)
--- NOTE | 2018-05-26 12:38 | PDOC.CTH ---
<Raisa Baires - Last Filed: 05/26/18 12:36> Cardiology Progress Note - Subjective EP progress note: patient seen and evaluated. Resting in bed. Family bedside. Sand bag over ICD site. Patient is feeling better and eager to go home. -chest pain, pressure, heart racing, palpitations, stroke symptoms, shortness of breath + moderate pain at ICD site, bruising, leg swelling - Objective Vital Signs Temp Pulse Pulse Pulse Resp BP BP 05/26/18 11:26 97.7 F 60 18 05/26/18 09:41 60 60 140/67 129/63 05/26/18 07:35 97.5 F L 60 20 05/26/18 04:00 97.3 F L 60 12 BP Pulse Ox Pulse Ox Pulse Ox 05/26/18 11:26 137/65 92 L 05/26/18 09:41 97 96 05/26/18 07:35 163/76 H 96 05/26/18 04:00 146/63 H 94 L Weight 160 lb 05/25/18 05/26/18 05/27/18 06:59 06:59 06:59 Intake Total 880 1080 Output Total 1050 1850 Balance -170 -770 - Physical Examination General/Neuro: alert & oriented x3, NAD Neck: no JVD present Lungs: unlabored respirations Heart: RRR Abdomen: NT/ND, soft Extremities: + edema B - Telemetry 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 Atrial fibrillation, rate controlled 2. OAC, eliquis continued for stroke prophylaxis 3. Recent upgrade to Bi-V ICD on 05/22/18 for 100% RV pacing. Keflex 500mg QID x 7 days started. To be continued upon DC. 4. Hematoma, implant site- appears stable according to notes and exam. Extensive bruising along axilla and tracking down left inner arm. Swollen over ICD. Incision intact with edges well approximated. Keep sand bag in place. If gets worse may need to hold Eliquis until acute bleeding resolved. Will re- evaluated tomorrow. Mild drop in Hgb. Will continue to track. 5. A/C heart failure, continues to diurese. Per cardiology 6. NICM <Oswaldo Hernandez - Last Filed: 05/26/18 15:41> Cardiology Progress Note - Objective Vital Signs Temp Pulse Pulse Pulse Resp BP BP 05/26/18 15:33 97.7 F 64 18 05/26/18 11:26 97.7 F 60 18 05/26/18 09:41 60 60 140/67 129/63 05/26/18 07:35 97.5 F L 60 20 05/26/18 04:00 97.3 F L 60 12 BP Pulse Ox Pulse Ox Pulse Ox 05/26/18 15:33 140/67 96 05/26/18 11:26 137/65 92 L 05/26/18 09:41 97 96 05/26/18 07:35 163/76 H 96 05/26/18 04:00 146/63 H 94 L Weight 160 lb 05/25/18 05/26/18 05/27/18 06:59 06:59 06:59 Intake Total 880 1080 Output Total 1050 1850 Balance -170 -770 - Labs Result Diagrams: 05/26/18 03:28 05/26/18 03:28 Troponin/CKMB CK-MB (CK-2) 1.7 ng/mL (0-6.6) 05/21/18 17:04 Troponin I Less than 0.010 ng/mL (< 0.028) 05/21/18 17:04 Attending Addendum - Attending Addendum Date/Time: 05/26/18 4400 I personally evaluated the patient and discussed the management with Ms Baires. I agree with the History, Examination, Assessment and Plan documented above with any addition or exceptions noted below.
[2018-05-26] MEDS: Cephalexin 250 MG CAP PO SCH ×3 (13:30→20:08)
[2018-05-26] MEDS ORDERED: Vancomycin HCl 1 GM in Premix Bag 1 BAG IVPB SCH (16:00)
[2018-05-26] MEDS ORDERED: Sodium Chloride 0.9% 10 ML ONE (18:02)
[2018-05-27 04:12] LABS: Anion Gap 11 mmol/L (10-20); BUN (Urea Nitrogen) 17 mg/dL (8.4-25.7); Calc. Creatinine Clearance 68 mL/min (70-130); Calcium 8.8 mg/dL (7.8-10.44); Carbon Dioxide 28 mmol/L (23-31); Chloride 90 mmol/L (98-107); Estimated GFR-MDRD Greater than 90; Glucose 107 mg/dL (83-110); Sodium 125 mmol/L (136-145)
[2018-05-27 05:09] LABS: Band 5 % (5-11); Eosinophils 4 % (0-10); Hemoglobin 13.1 g/dL (14.0-18.0); Lymphocytes 28 % (21-51); MDiff Complete? YES; Mean Corpuscular HGB CONC 35.1 g/dL (32.0-36.0); Mean Corpuscular Hemoglobin 36.3 pg (27.0-31.0); Mean Platelet Volume 7.4 fL (7.4-10.4); Monocytes 10 % (0-10); Neutrophil 53 % (42-75); PLT Morphology Comment Appears Decreased; Platelet Count 124 thou/uL (130-400); RBC Distribution Width 12.1 % (11.5-14.5); White Blood Cell (WBC) Count 16.4 thou/uL (4.8-10.8)
[2018-05-27] MEDS: Lisinopril 10 MG TAB PO SCH (08:15)
[2018-05-27] MEDS: Furosemide 40 MG TAB PO SCH (08:15)
[2018-05-27] MEDS: Cephalexin 250 MG CAP PO SCH ×3 (08:15→17:46)
[2018-05-27] MEDS: Carvedilol 6.25 MG TAB PO SCH ×2 (08:15→15:11)
[2018-05-27] MEDS: Docusate 100 MG CAP PO SCH (08:15)
[2018-05-27] MEDS: Primidone 50 MG TAB PO SCH (08:15)
[2018-05-27] MEDS: Aspirin 81 mg Enteric Coated Tablet PO SCH (08:15)
[2018-05-27] MEDS: Tamsulosin HCl 0.4 MG CAP PO SCH (08:16)
--- NOTE | 2018-05-27 11:47 | PDOC.PN ---
- Subjective Encounter Start Date: 05/27/18 Encounter Start Time: 11:45 Patient seen and examined. Denies any complaints. Admitted with new CHF onset w exacerbation and had ICD implanted in hospital. Discharge delayed by hematoma at ICD site. No acute events overnight. - Objective Resuscitation Status: Resuscitation Status FULL:Full Resuscitation MAR Reviewed: Yes Vital Signs & Weight: Vital Signs (12 hours) Temp Pulse Pulse Pulse Resp BP BP 05/27/18 09:27 66 60 136/66 145/68 H 05/27/18 07:08 97.6 F 60 16 05/27/18 04:00 97.3 F L 60 16 BP Pulse Ox Pulse Ox Pulse Ox 05/27/18 09:27 96 97 05/27/18 07:08 159/71 H 98 05/27/18 04:00 143/67 H 96 Weight Weight 156 lb I&O: 05/26/18 05/27/18 05/28/18 06:59 06:59 06:59 Intake Total 1080 1170 Output Total 1850 2700 Balance -770 -1530 Result Diagrams: 05/27/18 03:18 05/27/18 03:18 Phys Exam - Physical Examination Constitutional: NAD HEENT: moist MMs, sclera anicteric Neck: supple, full ROM Respiratory: no wheezing, no rales, no rhonchi, clear to auscultation bilateral Cardiovascular: RRR, no significant murmur, no rub hematoma around ICD site extending to the arm Gastrointestinal: soft, non-tender, no distention, positive bowel sounds Musculoskeletal: no edema, pulses present Neurological: non-focal, moves all 4 limbs Psychiatric: A&O x 3 Dx/Plan (1) NICM (nonischemic cardiomyopathy) Code(s): I42.8 - OTHER CARDIOMYOPATHIES Status: Chronic Comment: ICD in place. Eliquis being held 2/2 hematoma at site. Sandbags in place. (2) Severe mitral regurgitation Code(s): I34.0 - NONRHEUMATIC MITRAL (VALVE) INSUFFICIENCY Status: Chronic (3) Paroxysmal atrial fibrillation Code(s): I48.0 - PAROXYSMAL ATRIAL FIBRILLATION Status: Chronic Comment: Rate controlled. Eliquis not started 2/2 hematoma. (4) S/P ICD (internal cardiac defibrillator) procedure Status: Acute (5) Thrombocytopenia Code(s): D69.6 - THROMBOCYTOPENIA, UNSPECIFIED Status: Acute Comment: Stable. (6) Hypertension Code(s): I10 - ESSENTIAL (PRIMARY) HYPERTENSION Status: Chronic Qualifiers: Hypertension type: essential hypertension Qualified Code(s): I10 - Essential (primary) hypertension (7) Hyponatremia Code(s): E87.1 - HYPO-OSMOLALITY AND HYPONATREMIA Status: Chronic Comment: Stable. Asymptomatic. (8) Hematoma complicating a procedure Code(s): [id number] - Status: Acute Comment: At ICD site. (9) Acute decompensated heart failure Code(s): I50.9 - HEART FAILURE, UNSPECIFIED Status: Resolved Comment: Stable. Systolic with EF 25-35%. Continue PO furosemide. ICD in place. - Plan cont current plan of care, continue antibiotics, out of bed/ambulate * . Review of Systems - Medications/Allergies Allergies/Adverse Reactions: Allergies Allergy/AdvReac Type Severity Reaction Status Date / Time codeine Allergy Hives Verified 05/06/14 09:02 meperidine HCl [From Demerol] Allergy BP dropped Verified 05/24/18 08:50 oxycodone HCl [From Percodan] Allergy Rash Verified 05/06/14 09:02 oxycodone terephthalate Allergy Rash Verified 05/06/14 09:02 [From Percodan] Sulfa (Sulfonamide Allergy Verified 05/24/18 08:49 Antibiotics) Medications: Current Medications Acetaminophen (Tylenol) 650 mg PO Q4H PRN PRN Reason: Headache/Fever or Pain Last Admin: 05/25/18 10:51 Dose: 650 mg Acetaminophen (Tylenol) 650 mg [place] Q4H PRN PRN Reason: Headache/Fever or Pain Hydrocodone Bitart/Acetaminophen ([place] 5/325) 1 tab PO Q4H PRN PRN Reason: Pain Last Admin: 05/26/18 20:12 Dose: 1 tab Aspirin (Ecotrin) 81 mg PO DAILY [facility] Last Admin: 05/27/18 08:15 Dose: 81 mg Bisacodyl (Dulcolax) 10 mg PO DAILYPRN PRN PRN Reason: Constipation Last Admin: 05/25/18 16:49 Dose: 10 mg Carvedilol (Coreg) 6.25 mg PO TID [facility] Last Admin: 05/27/18 08:15 Dose: 6.25 mg Cephalexin (Keflex) 500 mg PO QID [facility] Stop: 06/02/18 13:01 Last Admin: 05/27/18 08:15 Dose: 500 mg Docusate Sodium (Colace) 100 mg PO BID [facility] Last Admin: 05/27/18 08:15 Dose: 100 mg Furosemide (Lasix) 40 mg PO DAILY-AC [facility] Last Admin: 05/27/18 08:15 Dose: 40 mg Levofloxacin (Levaquin) 750 mg PO 0600 [facility] Last Admin: 05/27/18 05:19 Dose: 750 mg Lisinopril (Zestril) 10 mg PO BID [facility] Last Admin: 05/27/18 08:15 Dose: 10 mg (Finasteride [ (Finasteride] 1 Mg)) 1 mg PO [facility] Ondansetron HCl (Zofran Odt) 4 mg PO Q6H PRN PRN Reason: Nausea/Vomiting Ondansetron HCl (Zofran) 4 mg IVP Q6H PRN PRN Reason: Nausea/Vomiting Primidone (Mysoline) 175 mg PO BID [facility] Last Admin: 05/27/18 08:15 Dose: 175 mg Tamsulosin HCl (Flomax) 0.4 mg PO BID [facility] Last Admin: 05/27/18 08:16 Dose: 0.4 mg Tramadol HCl (Ultram) 50 mg PO Q6H PRN PRN Reason: Pain Last Admin: 05/24/18 09:09 Dose: 50 mg
[2018-05-27] MEDS: HYDROcodone/Acetaminophen 5/325 mg Tablet PO PRN (12:07)
[2018-05-27 15:09] VITALS: TEMP 98.4
[2018-05-27 15:11] VITALS: BP 157/73
--- NOTE | 2018-05-27 15:29 | PDOC.CTH ---
<Raisa Baires - Last Filed: 05/27/18 15:27> Cardiology Progress Note - Subjective EP progress note: Patient seen and evaluated. Doing well. Less pain at ICD site/hematoma. Feels well and is eager to go home. -heart racing, palpitations, chest pain, pressure, edema, or stroke + ICD site tenderness and bruising. - Objective Vital Signs Temp Pulse Pulse Pulse Resp BP BP 05/27/18 15:11 157/73 H 05/27/18 15:06 98.4 F 60 18 05/27/18 12:02 97.5 F L 60 18 05/27/18 09:27 66 60 136/66 05/27/18 07:08 97.6 F 60 16 05/27/18 04:00 97.3 F L 60 16 BP BP Pulse Ox Pulse Ox Pulse Ox 05/27/18 15:11 05/27/18 15:06 121/60 95 05/27/18 12:02 131/60 95 05/27/18 09:27 145/68 H 96 97 05/27/18 07:08 159/71 H 98 05/27/18 04:00 143/67 H 96 Weight 156 lb 05/26/18 05/27/18 05/28/18 06:59 06:59 06:59 Intake Total 1080 1170 Output Total 1850 2700 Balance -770 -1530 - Physical Examination General/Neuro: alert & oriented x3, NAD Neck: no JVD present Lungs: CTA, unlabored respirations Abdomen: NT/ND - 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 Atrial fibrillation, rate controlled 2. OAC, eliquis continued for stroke prophylaxis 3. Recent upgrade to Bi-V ICD on 05/22/18 for 100% RV pacing. Keflex 500mg QID x 7 days started. To be continued upon DC. 4. Hematoma, implant site- Extensive bruising along axilla and tracking down left inner arm. Swelling has subsided significantly since yesterday. Incision intact with edges well approximated. Pressure dressing placed, keep on for 2 days. 5. A/C heart failure, continues to diurese. Per cardiology 6. NICM OK for DC by EP. Wound check on June 05 at [facility] clinic <Oswaldo Hernandez - Last Filed: 05/28/18 17:39> Cardiology Progress Note - Objective Weight 156 lb 05/27/18 05/28/18 05/29/18 06:59 06:59 06:59 Intake Total 1170 1440 Output Total 2700 100 Balance -1530 1340 - Labs Result Diagrams: 05/27/18 03:18 05/27/18 03:18 Troponin/CKMB CK-MB (CK-2) 1.7 ng/mL (0-6.6) 05/21/18 17:04 Troponin I Less than 0.010 ng/mL (< 0.028) 05/21/18 17:04 Attending Addendum - Attending Addendum Date/Time: 05/28/18 8757 I personally evaluated the patient and discussed the management with Mrs Baires. I agree with the History, Examination, Assessment and Plan documented above with any addition or exceptions noted below.
== END 2018-05-27 19:36 | disposition home or self-care (01) | DRG 227 ==
LOC: 2NO 15:22
PROVIDERS: ADMIT Internal Medicine; ATTEND Internal Medicine
PROC: 0JH609Z Insertion of Cardiac Resynchronization Defibrillator Pulse Generator into Chest Subcutaneous Tissue and Fascia, Open Approach (ICD-10-PCS; principal; 2018-05-23)
PROC: 02HK3KZ Insertion of Defibrillator Lead into Right Ventricle, Percutaneous Approach (ICD-10-PCS; 2018-05-23)
PROC: 02HL3KZ Insertion of Defibrillator Lead into Left Ventricle, Percutaneous Approach (ICD-10-PCS; 2018-05-23)
PROC: 0JPT0PZ Removal of Cardiac Rhythm Related Device from Trunk Subcutaneous Tissue and Fascia, Open Approach (ICD-10-PCS; 2018-05-23)
PROC: 02PA3MZ Removal of Cardiac Lead from Heart, Percutaneous Approach (ICD-10-PCS; 2018-05-23)
DX: I11.0 Hypertensive heart disease with heart failure (principal); E87.1 Hypo-osmolality and hyponatremia; L76.32 Postprocedural hematoma of skin and subcutaneous tissue following other procedure; I50.23 Acute on chronic systolic (congestive) heart failure; I48.0 Paroxysmal atrial fibrillation; E11.9 Type 2 diabetes mellitus without complications; I08.3 Combined rheumatic disorders of mitral, aortic and tricuspid valves; I42.8 Other cardiomyopathies; G25.0 Essential tremor; M48.061 Spinal stenosis, lumbar region without neurogenic claudication; I44.0 Atrioventricular block, first degree; R31.0 Gross hematuria; Y84.6 Urinary catheterization as the cause of abnormal reaction of the patient, or of later complication, without mention of misadventure at the time of the procedure; Y92.239 Unspecified place in hospital as the place of occurrence of the external cause; Y83.1 Surgical operation with implant of artificial internal device as the cause of abnormal reaction of the patient, or of later complication, without mention of misadventure at the time of the procedure; D69.6 Thrombocytopenia, unspecified; Z95.0 Presence of cardiac pacemaker; Z88.6 Allergy status to analgesic agent; Z88.5 Allergy status to narcotic agent; Z91.09 Other allergy status, other than to drugs and biological substances; Z79.82 Long term (current) use of aspirin; Z79.899 Other long term (current) drug therapy; Z82.61 Family history of arthritis; Z82.49 Family history of ischemic heart disease and other diseases of the circulatory system
CPT/HCPCS: 33225; 33233; 33249; 36005; 36415; 71045; 75820; 76705; 80048; 80053; 81001; 82553; 83880; 84484; 85025; 85610; 85730; 87077; 87086; 87186; 93005; 93010; 93306; 93798; A4216; C1777; C1882; C1900; G8978-GP-CK; G8979-GP-CK; G8980-GP-CK; G8987-GO-CJ; G8988-GO-CI; J1650; J1940; J2001; J2704; J3370; J3490

== ENCOUNTER 2018-12-12 09:33 | Day surgery (SDC) | payer MEDICARE, OTHER ==
[2018-12-11 12:26] VITALS: BMI 24.3
[2018-12-12 11:10] LABS: Hemoglobin 11.7 g/dL (14.0-18.0); Mean Corpuscular HGB CONC 34.2 g/dL (32.0-36.0); Mean Corpuscular Hemoglobin 35.8 pg (27.0-31.0); Mean Platelet Volume 7.3 fL (7.4-10.4); Platelet Count 150 thou/uL (130-400); RBC Distribution Width 11.8 % (11.5-14.5); Red Blood Cell (RBC) Count 3.28 mill/uL (4.70-6.10); White Blood Cell (WBC) Count 14.8 thou/uL (4.8-10.8)
[2018-12-12] MEDS ORDERED: PROPOFOL 200 MG/20 ML VIAL ONE (11:15)
[2018-12-12 11:16] LABS: INR-International Normal Ratio 1.5; PTT 40.7 SEC (22.9-36.1); Prothrombin Time 18.2 SEC (12.0-14.7)
[2018-12-12 11:24] LABS: Anion Gap 13 mmol/L (10-20); BUN (Urea Nitrogen) 21 mg/dL (8.4-25.7); Calc. Creatinine Clearance 61 mL/min (70-130); Calcium 8.6 mg/dL (7.8-10.44); Carbon Dioxide 24 mmol/L (23-31); Chloride 96 mmol/L (98-107); Estimated GFR-MDRD 83; Glucose 95 mg/dL (83-110); Potassium 4.7 mmol/L (3.5-5.1); Sodium 128 mmol/L (136-145)
[2018-12-12] MEDS ORDERED: PROPOFOL 20 ML ONE (11:32)
[2018-12-12 11:57] LABS: Band 1 % (5-11); Lymphocytes 69 % (21-51); MDiff Complete? YES; Monocytes 1 % (0-10); Neutrophil 29 % (42-75); RBC Morphology Normal
--- NOTE | 2018-12-12 17:06 | EKG ---
Test Reason : PREOP CARDIOVERSION Blood Pressure : / mmHG Vent. Rate : 060 BPM Atrial Rate : 192 BPM P-R Int : 000 ms QRS Dur : 156 ms QT Int : 506 ms P-R-T Axes : 000 072 007 degrees QTc Int : 506 ms Electronic ventricular pacemaker When compared with ECG of 21-MAY-2018 17:10, Premature ventricular complexes are no longer Present Vent. rate has decreased BY [address] Mag JETT ([id number]) on 12/12/2018 5:06:06 PM Referred By: MAURA Confirmed By:DR. Mag JETT
--- NOTE | 2018-12-12 19:22 | OP ---
DATE OF PROCEDURE: 12/12/2018 ELECTROCARDIOVERSION REPORT REFERRING PHYSICIAN: Dr. Roca and Dr. Earl Ramos, primary care physician. REASON FOR PROCEDURE: Mr. Ardon is an 88-year-old man with BiV ICD implanted in May 2018. He has been persisting atrial fibrillation, still on Pacerone twice a day, and he is here for a planned cardioversion. He also has been persistently anticoagulated with Eliquis without fail. His ICD was interrogated prior to the procedure and was found to be in adequate order, it is [employer] BiV ICD device. DESCRIPTION OF PROCEDURE: The patient received propofol by Anesthesia specialist. After adequate level of sedation achieved, overdrive atrial pacing was attempted but did not convert the patient back to sinus rhythm. Slow atrial flutter was converted to more rapid atrial fibrillation though. Following that, internal 35-joule synchronized shock failed to convert the patient back to sinus rhythm. Subsequently, an external 200-joule synchronized shock converted him back to sinus rhythm. CONCLUSION: Successful cardioversion. PLAN: Reprogrammed the device to atrial preference pacing and decrease amiodarone to 200 mg a day for now. Continue Eliquis therapy. Job ID: [id number]
== END 2018-12-12 13:30 | disposition home or self-care (01) ==
LOC: CCL 09:33
PROVIDERS: ATTEND Internal Medicine Cardiovascular Disease
PROC: 5A2204Z Restoration of Cardiac Rhythm, Single (ICD-10-PCS; principal; 2018-12-12)
DX: I48.1 Persistent atrial fibrillation (principal); I11.0 Hypertensive heart disease with heart failure; I50.20 Unspecified systolic (congestive) heart failure; I42.0 Dilated cardiomyopathy; Z88.5 Allergy status to narcotic agent; Z88.2 Allergy status to sulfonamides; Z88.6 Allergy status to analgesic agent; Z95.810 Presence of automatic (implantable) cardiac defibrillator; Z79.82 Long term (current) use of aspirin; Z79.01 Long term (current) use of anticoagulants; Z79.891 Long term (current) use of opiate analgesic; Z79.899 Other long term (current) drug therapy
CPT/HCPCS: 36415; 80048; 85025; 85060; 85610; 85730; 88184; 88237; 88264; 88280; 92960; 93005; 93010; J2704

== ENCOUNTER 2020-09-09 19:38 | Inpatient (IN) | payer MEDICARE, OTHER ==
[2020-09-09 20:41] LABS: Mean Corpuscular HGB CONC 34.5 g/dL (32.0-36.0); Mean Corpuscular Hemoglobin 36.6 pg (27.0-31.0); RBC Distribution Width 12.3 % (11.5-14.5); Red Blood Cell (RBC) Count 3.57 mill/uL (4.70-6.10)
[2020-09-09 20:43] LABS: Anion Gap 12 mmol/L (10-20); BUN (Urea Nitrogen) 23 mg/dL (8.4-25.7); Calc. Creatinine Clearance 0 mL/min (70-130); Calcium 8.7 mg/dL (7.8-10.44); Carbon Dioxide 25 mmol/L (23-31); Chloride 98 mmol/L (98-107); Estimated GFR-MDRD 85; Glucose 120 mg/dL (83-110); Sodium 130 mmol/L (136-145)
--- NOTE | 2020-09-09 20:48 | CT ---
CT Brain WO Con History: Injury Comparison: None. Findings: No acute hemorrhage or infarct. No midline shift or mass effect. Ventricular size and extra -axial CSF spaces are normal. Calvarium is intact. Paranasal sinuses and mastoids are clear. Right parietal scalp contusion. Impression: No acute posttraumatic intracranial sequela.
--- NOTE | 2020-09-09 20:51 | CT ---
CT Cervical Spine WO Con History: Pain. Fall Comparison: None. Findings: Occipital condyles are intact. Odontoid process is intact. Degenerative disease of the atla ntodental interval. Mastoids are clear. High-grade facet arthrosis of the cervical spine. Moderate vascular plaque of the carotid bulbs. Paraspinal soft tissues are without hemorrhage. Impression: No acute cervical spine fracture or malalignment.
--- NOTE | 2020-09-09 20:55 | CT ---
CT Thoracic Spine WO Con History: Injury Comparison: None. Findings: Moderate-large right layering pleural effusion. Mild scarring in the lung bases. Aortic con tour is nonaneurysmal. Moderate atherosclerotic plaque. No acute thoracic spine fracture or malalignment. Right T10 and bilateral 11 rib head/neck fractures. Transverse processes are intact. Spinous processes are intact. Impression: 1. Right T10 and bilateral T11 rib head/neck fractures with minimal buckling. 2. Moderate right layering pleural effusion. 3. No acute thoracic spine fracture. 4. Minimal superior endplate compression of L1 with nondisplaced fracture of the anterior vertebral b kenna.
--- NOTE | 2020-09-09 21:00 | CT ---
CT Lumbar Spine WO Con History: Fall. Pain Comparison: None. Findings: Minimal superior endplate compression of L1 with fracture extending to the anterior vertebr al body. No significant wedging. No involvement of the posterior vertebral body. L4 and L5 laminectomy changes. Fracture of the sacrum transversely oriented through S4 not completely in the field of view. Transverse processes are intact. Large cysts of the right kidney. Impression: 1. Minimal superior endplate wedging of L1 with fracture extending from the mid superior endplate exi ting the anterior vertebral body without significant wedging. 2. Incompletely evaluated transversely oriented sacral fracture through S4 not completely in the fiel d of view. If clinically warranted, pelvis CT may be beneficial. 3. Old left L4 transverse process fracture.
[2020-09-09 21:01] LABS: Band 5 % (5-11); Lymphocytes 41 % (21-51); MDiff Complete? YES; Macrocytosis SLIGHT = 6-15 cells (100X) (0-5/hpf); Mean Platelet Volume 8.6 fL (7.4-10.4); Monocytes 6 % (0-10); Neutrophil 48 % (42-75); Platelet Count 152 thou/uL (130-400); White Blood Cell (WBC) Count 24.9 thou/uL (4.8-10.8)
[2020-09-09] MEDS ORDERED: Boostrix 0.5 ML VIAL ONE (22:10)
[2020-09-09] MEDS ORDERED: Fentanyl 100 MCG/2 ML VIAL ONE (22:12)
--- NOTE | 2020-09-09 22:21 | CT ---
CT Chest Abd Pelvis W Con Limited CT thoracic spine with contrast Limited CT lumbosacral spine with contrast History: Fall Comparison: CT lumbar spine and thoracic spine on the same day. Findings: Moderate layering right pleural effusion. Heart size is enlarged. No pneumothorax. Right T10 and bilateral T11 rib head/neck fractures. Similar appearance of the L1 fracture as recentl y described. No other fracture is appreciated spine. No acute aortic injury. Bilateral renal cysts. No free intraperitoneal gas or fluid. The prostate is markedly enlarged. Transversely oriented fracture of S4 extends through zone 1, 2 and 3 bilaterally and has one cortex w idth anterior displacement and mild anterior buckling. Fracture does extend to the sacral spinous process. Obturator rings are intact. Acetabulum are intact. Ileum are intact. Iliac wings are intact. Femoral heads and necks are intact. Impression: 1. Similar appearance of the L1 fracture extending from the superior endplate to the anterior vertebr al body without significant wedging. 2. Transversely oriented fracture through S4 involving zones 1, 2 and 3 bilaterally with minimal ante rior buckling and one cortex anterior displacement. 3. Unchanged right T10 and bilateral T11 rib head/neck fractures. 4. Moderate right layering pleural effusion. 5. Cardiomegaly. 6. Bilateral renal cysts.
[2020-09-09 23:34] LABS: Magnesium 1.9 mg/dL (1.6-2.6); Phosphorus 3.3 mg/dL (2.3-4.7)
[2020-09-10] MEDS ORDERED: Fentanyl 100 MCG/2 ML VIAL ONE (00:34)
[2020-09-10] MEDS ORDERED: Ondansetron PF 4 MG/2 ML Vial IVP PRN ×2 (00:35→00:44)
[2020-09-10] MEDS ORDERED: Dextrose 5% in Water 1,000 ML IV PRN (00:35)
[2020-09-10] MEDS ORDERED: Dextrose 50% Abboject 50 ML SYRINGE SLOW IVP PRN (00:35)
[2020-09-10] MEDS ORDERED: Insulin Regular 300 UNITS/3 ML VIAL SC PRN ×2 (00:41)
[2020-09-10] MEDS ORDERED: Cyclobenzaprine 10 MG TAB PO PRN (00:44)
[2020-09-10] MEDS ORDERED: traMADol HCl 50 MG TAB PO SCH (00:45)
[2020-09-10] MEDS ORDERED: Sodium Chloride 0.9% 1,000 ML IV SCH (00:45)
[2020-09-10] MEDS ORDERED: Magnesium 2 GM/50 ML 2 GM in Premix Bag 1 BAG IVPB SCH (01:15)
[2020-09-10] MEDS: Morphine 4 MG/ML VIAL SLOW IVP PRN ×2 (01:28→03:26)
[2020-09-10 01:43] VITALS: BMI 28.3
[2020-09-10 04:23] LABS: Phosphorus 2.9 mg/dL (2.3-4.7)
[2020-09-10 04:25] LABS: Anion Gap 12 mmol/L (10-20); BUN (Urea Nitrogen) 19 mg/dL (8.4-25.7); Calc. Creatinine Clearance 80 mL/min (70-130); Calcium 8.4 mg/dL (7.8-10.44); Carbon Dioxide 23 mmol/L (23-31); Chloride 97 mmol/L (98-107); Estimated GFR-MDRD Greater than 90; Glucose 140 mg/dL (83-110); Magnesium 2.8 mg/dL (1.6-2.6); Potassium 4.8 mmol/L (3.5-5.1); Sodium 127 mmol/L (136-145)
[2020-09-10] MEDS: Gabapentin 100 MG CAP PO SCH ×3 (05:02→22:55)
[2020-09-10] MEDS: Acetaminophen 500 MG TAB PO SCH ×4 (05:02→22:55)
[2020-09-10] MEDS: traMADol HCl 50 MG TAB PO SCH ×4 (05:02→22:56)
[2020-09-10 05:04] LABS: Hemoglobin 12.9 g/dL (14.0-18.0); Mean Corpuscular HGB CONC 34.4 g/dL (32.0-36.0); Mean Corpuscular Hemoglobin 36.3 pg (27.0-31.0); Mean Platelet Volume 8.7 fL (7.4-10.4); Platelet Count 143 thou/uL (130-400); RBC Distribution Width 12.3 % (11.5-14.5); Red Blood Cell (RBC) Count 3.56 mill/uL (4.70-6.10)
[2020-09-10 05:05] LABS: Band 9 % (5-11); Lymphocytes 38 % (21-51); MDiff Complete? YES; Monocytes 3 % (0-10); Neutrophil 50 % (42-75)
--- NOTE | 2020-09-10 05:22 | HP ---
REQUESTING PHYSICIAN: Dr. Galicia. CONSULTS: Neurosurgery, Dr. Barber. CHIEF COMPLAINT: Mechanical fall, on Eliquis HISTORY OF PRESENT ILLNESS: This is an 89-year-old gentleman who lives at [facility], who reports having a mechanical fall. The patient reports that his knees gave out on him causing him to fall backwards hitting his head. The patient denies any loss of consciousness. The patient denies feeling weak, dizzy, or having chest pain or shortness of breath prior to falling or after. The patient has had multiple falls this week due to general weakness. The patient uses a walker to ambulate. The patient's current GCS is 15. The patient sustained a scalp laceration which was repaired in the emergency room. The patient also sustained a L1 superior endplate compression fracture and right thoracic head rib fractures 10 and 11 and also a left 11th rib fracture. The patient currently denies any shortness of breath. The patient does report back pain. The patient also has a right pleural effusion. The patient had multiple falls this week. He reports two weeks ago slipping and falling in the shower, he was evaluated and had no injuries. REVIEW OF SYSTEMS: A 10-point review of systems is negative unless otherwise indicated in the above HPI. ALLERGIES: CODEINE, MEPERIDINE, OXYCODONE, SULFA. MEDICATIONS: 1. Eliquis 2.5 mg two times a day. 2. Coreg 6.25 mg two times a day. 3. Finasteride 5 mg at bedtime. 4. Lasix 20 mg daily as needed. 5. Lisinopril 10 mg. 6. Primidone 250 mg two times a day. 7. Protonix 40 mg a day. 8. Flomax 0.4 mg p.o. at bedtime. 9. Tramadol 50 mg q.6 hours for pain p.r.n. PAST MEDICAL HISTORY: Pacemaker placement, benign prostatic hypertrophy, hypertension, type 2 diabetes, osteoarthritis, cardiomyopathy, atrial fibrillation. SOCIAL HISTORY: The patient lives at [facility]. Denies history of smoking. SURGICAL HISTORY: Laminectomy L4-L5, pacemaker. OBJECTIVE: VITAL SIGNS: Blood pressure 162/79, pulse 62, respirations 21, SpO2 of 96% on room air, temperature 98.0. GENERAL: Elderly male, awake, alert, in no distress. HEENT: Normocephalic, contusion to the frontal scalp with 1.5 cm laceration with sutures in place and an adjacent 1 cm skin tear. There is no active bleeding. Pupils are equal and reactive, bilateral. Extraocular muscles intact, normal range of motion of neck, no cervical spine tenderness. Trachea is midline, no carotid bruits. RESPIRATORY: Equal chest rise and fall, bilateral breath sounds clear in upper lobes, right lower lobe diminished, no wheezing, rales, or rhonchi. Pacemaker, left upper chest. CARDIOVASCULAR: Regular rate, regular rhythm. No murmurs. Nonpitting pedal edema present. ABDOMEN: Soft, nontender, nondistended, no peritoneal signs, no guarding. Pelvis is stable. BACK: Midline tenderness to lower back. EXTREMITIES: Moves all extremities, strength 5/5, neurovascularly intact x4. NEUROLOGIC: No focal deficits. GCS 15. LABORATORY DATA: WBC 24.9, RBC 3.57, hemoglobin 13.0, hematocrit 37.8, platelets 152. Sodium 130, potassium 5.0, chloride 98, BUN 23, creatinine 0.85, estimated GFR 85, glucose 120, calcium 8.7. Troponin 0.016. CK 30, phosphorus 3.3, and magnesium 1.9. DIAGNOSTIC DATA: 1. 12-lead EKG, impression: Ventricular pacemaker, rate 62, normal T-waves and ST segments. 2. Lumbar spine CT, impression: Minimal superior endplate wedging of L1 with fracture extending from the mid superior endplate exiting the anterior vertebral body without significant wedging. Transverse oriented sacral fracture through S4. Old left L4 transverse process fracture. 3. Brain CT, impression: No posttraumatic intracranial sequel. Cervical spine CT impression, no acute cervical spine fracture or malalignment. 4. Thoracic spine CT, impression: Right T10 and bilateral T11 rib head/neck fractures with minimal buckling. Moderate right layering pleural effusion. No acute thoracic spine fractures. Minimal superior endplate compression of L1 with nondisplaced fracture of the anterior vertebral body. 5. Chest, abdomen, and pelvis CT, impression: L1 fracture extending from the superior endplate to the anterior vertebral body without significant wedging. 6. Transversely oriented fracture through S4 of all in zones one, two and three bilateral with minimal anterior buckling and one cortex anterior displacement. Right T10 and bilateral T11 rib head neck fractures. ASSESSMENT: 1. Mechanical fall, on Xarelto, without loss of consciousness. 2. L1 superior endplate compression fracture. 3. Rib fractures, right thoracic head, 10 and 11 and also left 11. S4 fracture. Scalp laceration, sutured in the ER. 4. Right pleural effusion. 5. Chronic hyponatremia. 6. History of hypertension, benign prostatic hyperplasia, type 2 diabetes, osteoarthritis, cardiomyopathy, atrial fibrillation. PLAN: Admit to the surgical floor. Clear liquid diet as tolerated. Pain control. Accu-Cheks with sliding scale. Head of bed no higher than 30 degrees until the patient has his fitted clamshell brace. Hold Eliquis. Replace electrolytes. We will place a post-acute screen as the patient will likely need inpatient rehab. Free water restriction for hyponatremia. The plan was discussed with the attending. The plan was discussed with the patient who agrees. Job ID: [id number] [facility]
--- NOTE | 2020-09-10 09:29 | PRG ---
DATE OF SERVICE: 09/10/2020 Please see Amy Gonzalez's H and P for full details. The patient is status post a mechanical fall, on Eliquis. Injuries include L1 compression fracture, rib fractures, scalp laceration. Plan is for PT/OT, likely rehab placement. Job ID: [id number]
[2020-09-10] MEDS: Carvedilol 6.25 MG TAB PO SCH ×2 (09:49→20:23)
[2020-09-10] MEDS: Senokot S 8.6-50 MG TAB PO SCH ×2 (09:49→20:23)
[2020-09-10] MEDS: Polyethylene Glycol 3350 17 GM Packet PO SCH (09:49)
[2020-09-10] MEDS: Primidone 50 MG TAB PO SCH ×2 (10:50→20:24)
--- NOTE | 2020-09-10 11:28 | PRG ---
DATE OF SERVICE: 09/10/2020 Mr. Ardon suffered a fall. He has a bad sacral fracture and non-worrisome L1 fracture. I would not even brace the L1 fracture. He wiggles his toes. He has dementia. We could arrange for a followup in 6 weeks with x-rays, but again I think abrasive for his L1 fracture would bring more risk to the patient given wound breakdown and the fact that he has a sacral fracture that will likely make him nonweightbearing anyway. Job ID: [id number]
[2020-09-10] MEDS ORDERED: Ibuprofen 600 MG TAB PO SCH (14:00)
[2020-09-10] MEDS: Ibuprofen 200 MG TAB PO SCH ×2 (14:35→22:55)
[2020-09-10 15:26] LABS: SARS-CoV-2 MS2 Positive; SARS-CoV-2 N Gene Negative; SARS-CoV-2 S Gene Negative; SARS-CoV-2 by NAA Not Detected (NotDetected); SARS-CoV-2 orf1ab Negative
--- NOTE | 2020-09-10 17:02 | PRG ---
DATE OF SERVICE: 09/10/2020 SUBJECTIVE: The patient was seen this morning during rounds. He was sitting up in bed, awake and alert with no signs of acute distress. He reported his pain is well controlled. He has already worked with Physical Therapy today. He is tolerating his diet and voiding without difficulties. OBJECTIVE: VITAL SIGNS: Temperature 97.6, pulse 60, respirations 18, oxygen saturation 94% on room air, and blood pressure 135/76. GENERAL: Well-appearing elderly male, sitting up in bed, alert and awake, with no signs of acute distress. PULMONARY: Equal chest rise and fall. Clear breath sounds bilaterally. No signs of acute respiratory distress. CARDIAC: Regular rate and rhythm. GI: Abdomen is soft, nontender, and nondistended. EXTREMITIES: 2+ pulses in all extremities. Gross motor and sensation intact. No significant swelling noted. NEUROLOGIC: GCS is 15. LABORATORY FINDINGS: White count 20.0, hemoglobin 12.9, hematocrit 37.6, and platelets 143. Sodium 127, potassium 4.8, chloride 97, bicarb 23, BUN 19, creatinine 0.73, and glucose 140. Phosphorus 2.9. Magnesium 2.8. BNP 658. DIAGNOSTIC FINDINGS: There are no new diagnostic findings to discuss. ASSESSMENT: 1. Status post mechanical fall from standing, on Eliquis. 2. Left superior endplate fracture. 3. S4 fracture. 4. Right ribs 10 and 11 fracture and left 11 fracture. 5. Scalp laceration, status post repair. 6. Chronic hyponatremia. 7. History of pacemaker. 8. Benign prostatic hypertrophy. 9. Diabetes. 10. Obstructive sleep apnea. 11. Atrial fibrillation. 12. Cardiomyopathy. PLAN: Continue current diet and pain regimen. Restart home medications as clinically indicated. 1 L free water restriction. The patient can have other liquids that he would like. Dr. Barber has evaluated the patient and recommended conservative management with physical therapy. No brace or surgery is needed. The patient will likely be discharged back to his skilled facility at [place] [facility] where he already resides. Job ID: [id number]
[2020-09-10 18:26] LABS: Bilirubin Negative (Negative); Blood, Urine 1+ (Negative); Clarity Clear (Clear); Glucose, Urine (Dipstick) Normal (Negative); Ketone, Urine Negative (Negative); Leukocyte Negative Leu/uL (Negative); Nitrite Negative (Negative); Protein, Urine (Dipstick) 30 mg/dL (Neg-Trace); Squamous Epithelial 0-3 HPF (0-3); Urobilinogen Normal mg/dL (Less than 2); pH, Urine 5.5 (5.0-9.0)
[2020-09-10 18:27] LABS: Bacteria/HPF 1+ HPF (None Seen)
[2020-09-10 18:28] LABS: Urine Culture Reflex Yes Yes
[2020-09-10] MEDS: Finasteride 5 MG TAB PO SCH (20:23)
[2020-09-10] MEDS: Tamsulosin HCl 0.4 MG CAP PO SCH (20:23)
[2020-09-10] MEDS: Lisinopril 10 MG TAB PO SCH (20:23)
[2020-09-10] MEDS: Cipro 250 MG TAB PO SCH (20:23)
[2020-09-10] MEDS: traMADol HCl 50 MG TAB PO PRN (20:30)
[2020-09-11 05:43] LABS: Band 1 % (5-11); Eosinophils 1 % (0-10); Hemoglobin 12.8 g/dL (14.0-18.0); Lymphocytes 56 % (21-51); MDiff Complete? YES; Mean Corpuscular HGB CONC 33.3 g/dL (32.0-36.0); Mean Corpuscular Hemoglobin 35.7 pg (27.0-31.0); Mean Platelet Volume 8.8 fL (7.4-10.4); Monocytes 5 % (0-10); Neutrophil 34 % (42-75); Platelet Count 116 thou/uL (130-400); Platelet Morphology Comment Appears Decreased; RBC Distribution Width 12.5 % (11.5-14.5); Reactive Lymphocytes 3 % (0-10)
[2020-09-11] MEDS: Acetaminophen 500 MG TAB PO SCH ×4 (05:48→23:10)
[2020-09-11] MEDS: traMADol HCl 50 MG TAB PO SCH ×4 (05:48→23:10)
[2020-09-11] MEDS: Cipro 250 MG TAB PO SCH ×2 (05:49→23:08)
[2020-09-11] MEDS: Gabapentin 100 MG CAP PO SCH ×3 (05:49→23:09)
[2020-09-11] MEDS: Ibuprofen 200 MG TAB PO SCH ×3 (05:49→23:09)
[2020-09-11 05:50] LABS: Anion Gap 11 mmol/L (10-20); BUN (Urea Nitrogen) 20 mg/dL (8.4-25.7); Calc. Creatinine Clearance 76 mL/min (70-130); Calcium 8.4 mg/dL (7.8-10.44); Carbon Dioxide 27 mmol/L (23-31); Chloride 97 mmol/L (98-107); Estimated GFR-MDRD Greater than 90; Glucose 98 mg/dL (83-110); Magnesium 2.3 mg/dL (1.6-2.6); Phosphorus 3.3 mg/dL (2.3-4.7); Sodium 130 mmol/L (136-145)
[2020-09-11] MEDS: Enoxaparin Sodium 30 MG/0.3 ML SYRINGE SC SCH (09:05)
[2020-09-11] MEDS: Polyethylene Glycol 3350 17 GM Packet PO SCH (09:06)
[2020-09-11] MEDS: Carvedilol 6.25 MG TAB PO SCH ×2 (09:07→23:09)
[2020-09-11] MEDS: Senokot S 8.6-50 MG TAB PO SCH ×2 (09:07→23:12)
[2020-09-11] MEDS: traMADol HCl 50 MG TAB PO PRN ×2 (09:15→23:11)
[2020-09-11] MEDS: Primidone 50 MG TAB PO SCH ×2 (10:08→23:09)
--- NOTE | 2020-09-11 10:53 | RAD ---
RADIOGRAPH CHEST 1 VIEW: DATE: 09/11/2020 TIME: 5:11 AM HISTORY: 89-year-old male with traumatic chest pain due to rib fractures. COMPARISON: 05/24/2018 FINDINGS: Limited study because of shallow inspiration. Multilead left subclavian AICD remains. Blunting of lateral costophrenic angles bilaterally. The righ t side is due to pleural effusion, while the left side is due to paracardial fat pad as demonstrated on CT of 09/09/2020.. Haziness at right perihilar medial central and basilar lung zones, corresponds to probable mild passive atelectasis in the right lower lobe as demonstrated on recent CT. No consolidation at upper lung zones. Generator for AICD obscures portions of the left lung. No p neumothorax. Findings appear similar to the radiograph of 2 years ago. IMPRESSION: Small right pleural effusion.
--- NOTE | 2020-09-11 15:24 | PRG ---
DATE OF SERVICE: 09/11/2020 SUBJECTIVE: The patient was seen this afternoon during rounds. He had just finished eating lunch. He was sitting up in bed with no signs of acute distress. He reported pain was well controlled. Tolerating his diet, voiding without difficulties. He was able to ambulate in the room with the physical therapist today, and he was started on Cipro for urinary tract infection. OBJECTIVE: VITAL SIGNS: Temperature 97.7, pulse 60, respirations 14, oxygen saturation 98% on room air, and blood pressure 159/83. GENERAL: Well-appearing elderly male, sitting up in bed with no signs of acute distress. PULMONARY: Equal chest rise and fall. Clear breath sounds bilaterally. No signs of acute respiratory distress. CARDIAC: Regular rate and rhythm. GI: Abdomen is soft, nontender, nondistended. EXTREMITIES: 2+ pulses in all extremities. Gross motor and sensation intact. No significant swelling noted. NEUROLOGIC: GCS is 15. LABORATORY FINDINGS: White count 19.0, hemoglobin 12.8, hematocrit 38.6, and platelets 116. Sodium 130, potassium 5.0, chloride 97, bicarb 27, BUN 20, creatinine 0.76, phosphorus 3.3, and magnesium 2.3. DIAGNOSTIC FINDINGS: Chest x-ray completed this morning demonstrates a small right pleural effusion. ASSESSMENT: 1. Status post multiple recent falls on Eliquis. 2. L1 superior endplate fracture. 3. S4 fracture. 4. Right-sided ribs 10 and 11 fracture and left-sided 11th rib fracture. 5. Scalp laceration, status post repair. 6. Leukocytosis, likely due to urinary tract infection, uncomplicated - now improving. 7. History of pacemaker, benign prostatic hypertrophy, diabetes, obstructive sleep apnea, atrial fibrillation, cardiomyopathy, chronic hyponatremia. PLAN: Continue current diet and pain regimen. Continue physical and occupational therapy. Continue Cipro for urinary tract infection. Follow up cultures. Start the patient on prophylactic DVT dosing of Lovenox. 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 The patient is pending discharge to acute rehab facility. Repeat blood work in the morning. If continues to improve, he is ready for discharge likely tomorrow. Job ID: [id number]
[2020-09-11] MEDS: Lisinopril 10 MG TAB PO SCH (23:08)
[2020-09-11] MEDS: Finasteride 5 MG TAB PO SCH (23:08)
[2020-09-11] MEDS: Tamsulosin HCl 0.4 MG CAP PO SCH (23:09)
[2020-09-12] MEDS: Gabapentin 100 MG CAP PO SCH (05:31)
[2020-09-12] MEDS: Ibuprofen 200 MG TAB PO SCH ×2 (05:31→13:36)
[2020-09-12] MEDS: Cipro 250 MG TAB PO SCH (05:31)
[2020-09-12] MEDS: Acetaminophen 500 MG TAB PO SCH ×2 (05:31→13:37)
[2020-09-12] MEDS: traMADol HCl 50 MG TAB PO SCH ×2 (05:32→13:43)
[2020-09-12 05:52] LABS: Anion Gap 11 mmol/L (10-20); BUN (Urea Nitrogen) 21 mg/dL (8.4-25.7); Calc. Creatinine Clearance 74 mL/min (70-130); Calcium 8.2 mg/dL (7.8-10.44); Carbon Dioxide 24 mmol/L (23-31); Chloride 98 mmol/L (98-107); Estimated GFR-MDRD Greater than 90; Glucose 82 mg/dL (83-110); Phosphorus 2.7 mg/dL (2.3-4.7); Potassium 4.9 mmol/L (3.5-5.1); Sodium 128 mmol/L (136-145)
[2020-09-12 06:08] LABS: Eosinophils 1 % (0-10); Hemoglobin 12.6 g/dL (14.0-18.0); Lymphocytes 62 % (21-51); MDiff Complete? YES; Macrocytosis SLIGHT = 6-15 cells (100X) (0-5/hpf); Mean Corpuscular HGB CONC 33.1 g/dL (32.0-36.0); Mean Corpuscular Hemoglobin 35.5 pg (27.0-31.0); Mean Platelet Volume 9.4 fL (7.4-10.4); Monocytes 3 % (0-10); Neutrophil 34 % (42-75); Platelet Count 119 thou/uL (130-400); Platelet Morphology Comment Appears Decreased; RBC Distribution Width 12.3 % (11.5-14.5); Red Blood Cell (RBC) Count 3.54 mill/uL (4.70-6.10); White Blood Cell (WBC) Count 22.1 thou/uL (4.8-10.8)
[2020-09-12] MEDS ORDERED: Sodium Phosphate 30 MMOL in Sodium Chloride 0.9% 250 ML 250 ML IVPB SCH (08:00)
[2020-09-12] MEDS ORDERED: Lisinopril 10 MG TAB PO SCH (08:00)
[2020-09-12] MEDS: Enoxaparin Sodium 30 MG/0.3 ML SYRINGE SC SCH (09:21)
[2020-09-12] MEDS: Polyethylene Glycol 3350 17 GM Packet PO SCH (09:21)
[2020-09-12] MEDS: Senokot S 8.6-50 MG TAB PO SCH (09:22)
[2020-09-12] MEDS: Carvedilol 6.25 MG TAB PO SCH (09:22)
[2020-09-12] MEDS: Primidone 50 MG TAB PO SCH (13:38)
[2020-09-12 15:27] VITALS: BP 141/84; TEMP 98.3
--- NOTE | 2020-09-12 16:51 | DIS ---
DATE OF ADMISSION: 09/10/2020 DATE OF DISCHARGE: 09/12/2020 CONSULTING PHYSICIAN: Dr. Barber of Neurosurgery. ADMISSION DIAGNOSES: Multiple mechanical falls on Eliquis; left superior endplate compression fracture; S4 fracture; right ribs, 10 and 11 fracture, left 11th fracture; scalp laceration; leukocytosis, left pleural effusion. DISCHARGE DIAGNOSES: Multiple mechanical falls on Eliquis; left superior endplate compression fracture; S4 fracture; right ribs, 10 and 11 fracture, left 11th fracture; scalp laceration; leukocytosis, left pleural effusion, and urinary tract infection. PROCEDURES: None. HOSPITAL COURSE: The patient is an 89-year-old male, presented to the emergency department after he had multiple mechanical falls on Eliquis. He lives at an assisted living facility. He was found to have the injuries listed above and was admitted to the Trauma Service. Dr. Barber's team evaluated the patient and reported no need for surgical intervention or a brace. He was provided with pain control. The patient's leukocytosis was worked up with the UA and a chest x-ray. UA demonstrated urinary tract infection. He was started on Cipro for 3 days and cultures were sent. After his white count down trended for a day, it up-trended again. Subsequently, blood and sputum cultures were ordered. The patient had no complaints. No dysuria or urinary retention. He denies any shortness of breath. He had no cough. He has slightly diminished breath sounds at the left base. There was no concern for pneumonia. It was recommended to his longterm facility to complete a chest x-ray and a CBC in 3 to 5 days for followup. The patient was tolerating regular a diabetic diet. Pain was well controlled and he was working with Physical and Occupational Therapy. He was voiding and having bowel movements before discharge. DISCHARGE DISPOSITION: Senior Living Facility, [facility]. DISCHARGE CONDITION: Satisfactory. PHYSICAL EXAMINATION: VITAL SIGNS: Temperature 98.3, pulse rate 60, respirations are 18, oxygen saturation 92% on room air, and blood pressure 141/84. GENERAL: A well-appearing elderly male, sitting up in bed with no signs of acute distress. PULMONARY: Equal chest rise and fall. No signs of acute respiratory distress. CARDIAC: Regular rate and rhythm. NEUROLOGIC: GCS is 15. DISCHARGE INSTRUCTIONS: The patient was discharged to a longterm facility. Activity as tolerated. Weightbearing as tolerated, diabetic diet with Glucerna b.i.d. He will have Physical and Occupational therapy as well as incentive spirometry and a walker. The patient needs a CBC and chest x-ray in 5 to 7 days for leukocytosis and small left pleural effusion followup. Hold Eliquis until followup with PCP. DISCHARGE MEDICATIONS: Include Tylenol, carvedilol, Cipro, Flexeril, Lovenox, finasteride, gabapentin, ibuprofen, lisinopril, pantoprazole, MiraLAX, primidone, Senokot S, Flomax, and tramadol. FOLLOWUP APPOINTMENTS: The patient is to follow up with Dr. Barber. No followup needed with Trauma Clinic and Dr. High. This is a summary of the patient's hospitalization. For full details, please see his medical record in its entirety. The patient was seen and evaluated on the day of discharge by myself. Job ID: [id number]
[2020-09-12] MEDS ORDERED: Lisinopril 20 MG TAB PO SCH (21:00)
== END 2020-09-12 17:47 | DRG 184 ==
LOC: ERS 19:38 → SURG A 09-10 01:16 → OBSVTOIN 09-10 08:45
PROVIDERS: ADMIT Surgery; ATTEND Surgery
PROC: 0HQ0XZZ Repair Scalp Skin, External Approach (ICD-10-PCS; principal; 2020-09-10)
DX: S22.41XA Multiple fractures of ribs, right side, initial encounter for closed fracture (principal); S32.111A Minimally displaced Zone I fracture of sacrum, initial encounter for closed fracture; S32.010A Wedge compression fracture of first lumbar vertebra, initial encounter for closed fracture; I42.9 Cardiomyopathy, unspecified; E87.1 Hypo-osmolality and hyponatremia; N39.0 Urinary tract infection, site not specified; J90 Pleural effusion, not elsewhere classified; Z20.828 Contact with and (suspected) exposure to other viral communicable diseases; N40.0 Benign prostatic hyperplasia without lower urinary tract symptoms; I10 Essential (primary) hypertension; E11.9 Type 2 diabetes mellitus without complications; M19.90 Unspecified osteoarthritis, unspecified site; I48.91 Unspecified atrial fibrillation; W19.XXXA Unspecified fall, initial encounter; Z88.2 Allergy status to sulfonamides; Z88.5 Allergy status to narcotic agent; Z79.01 Long term (current) use of anticoagulants; Z79.899 Other long term (current) drug therapy; Z95.0 Presence of cardiac pacemaker; Z88.8 Allergy status to other drugs, medicaments and biological substances; S01.01XA Laceration without foreign body of scalp, initial encounter
CPT/HCPCS: 12011; 36415; 36416; 70450; 71045; 71260; 72125; 72128; 72131; 74177; 80048; 81001; 82550; 83735; 83880; 84100; 84484; 85007; 85025; 85027; 87040; 87086; 87635; 90471; 90715; 93005; 96365; 96374; 96375; 96376; G0378; J1650; J2270; J3010; J3475; J7030; J7050; U0003

== ENCOUNTER 2021-01-14 22:21 | Inpatient (IN) | payer MEDICARE ==
[~2021-01-14 22:21] MED LIST: Iopamidol-370 76% 500 ML 1 ML ONE
[2021-01-14] MEDS ORDERED: Acetaminophen 325 MG TAB ONE (22:47)
--- NOTE | 2021-01-14 23:04 | RAD ---
Exam: Chest one view HISTORY:Cough Comparison: 09/11/2020 FINDINGS: Cardiac silhouette:Able cardiomegaly. Stable left-sided defibrillator. Aorta: Stable atherosclerosis Pulmonary vessels: Normal Costophrenic angles: Clear LUNGS: Changes without mass or consolidation. Pneumothorax: None Osseous abnormalities: None IMPRESSION: 1. Atherosclerosis 2. No acute cardiopulmonary process.
[2021-01-14 23:25] LABS: Base Excess-Venous 0.3 mmol/L (-2.0 to 3.0); Bicarbonate (HCO3v) 26.1 mmol/L (22.0-28.0); CO2 Tension (PvCO2) 45.7 mmHg (40.0-50.0); Calcium, Ionized 1.05 mmol/L (1.15-1.33); Chloride 103 mmol/L (98-107); Hemoglobin - Calc 12.2 g/dL (14.0-18.0); Potassium 5.1 mmol/L (3.5-5.1); Sodium 133 mmol/L (138-145); T. Carbon Dioxide 27.5 mmol/L (22.0-28.0); vO2 Saturation-calc 34.4 % (60.0-85.0)
[2021-01-14 23:38] LABS: ALT (SGPT) 49 U/L (8-55); AST (SGOT) 33 U/L (5-34); Albumin 4.3 g/dL (3.4-4.8); Alkaline Phosphatase 197 U/L (40-110); Anion Gap 16 mmol/L (10-20); BUN (Urea Nitrogen) 39 mg/dL (8.4-25.7); Bilirubin, Total 1.4 mg/dL (0.2-1.2); Calc. Creatinine Clearance 0 mL/min (70-130); Calcium 8.9 mg/dL (7.8-10.44); Carbon Dioxide 25 mmol/L (23-31); Chloride 99 mmol/L (98-107); Globulin 2.1 g/dL (2.4-3.5); Glucose 122 mg/dL (83-110); Potassium 5.2 mmol/L (3.5-5.1); Protein, Total 6.4 g/dL (5.8-8.1); Sodium 135 mmol/L (136-145)
[2021-01-14 23:56] LABS: Band 15 % (5-11); Hemoglobin 11.7 g/dL (14.0-18.0); Lymphocytes 39 % (21-51); MDiff Complete? YES; Macrocytosis SLIGHT = 6-15 cells (100X) (0-5/hpf); Mean Corpuscular HGB CONC 33.4 g/dL (32.0-36.0); Mean Corpuscular Hemoglobin 35.8 pg (27.0-31.0); Mean Platelet Volume 9.3 fL (7.4-10.4); Monocytes 3 % (0-10); Neutrophil 43 % (42-75); Platelet Count 144 thou/uL (130-400); RBC Distribution Width 13.5 % (11.5-14.5); Red Blood Cell (RBC) Count 3.27 mill/uL (4.70-6.10); White Blood Cell (WBC) Count 35.5 thou/uL (4.8-10.8)
[2021-01-15] LABS: CKMB 1.4 ng/mL (0-6.6)
[2021-01-15] MEDS ORDERED: Azithromycin 500 MG VIAL ONE (00:24)
[2021-01-15] MEDS ORDERED: cefTRIAXone\\ROCEPHIN 2 GM VIAL ONE (00:24)
[2021-01-15] MEDS ORDERED: Aspirin 325 MG TAB ONE (00:50)
--- NOTE | 2021-01-15 01:08 | PDOC.HHP ---
Hospitalist CHRISTIAN AMS History of Present Illness: PCP: Dr. Ramos Patient is an 89-year-old male with a past medical history significant for HTN, DM 2, atrial fibrillation (on Eliquis), cardiomyopathy and BPH that presents to the emergency department via EMS for the above complaint. The patient is a resident at [facility]. This evening at approximately 8:00 PM, the patient was found on the toilet, appearing confused. Staff called EMS. Upon arrival, EMS noted the patient to be oriented to person and time with a t emperature of 102.2 Fahrenheit. Per EMS, the patient had a recent Covid-19 virus exposure. The patient was taken to the hospital for further evaluation. ED Course: VITAL SIGNS Sat Jan 14, 2021 22:22 BRIANA Petersen Daniel BP: 163/57, Pulse: 80, Resp: 20, Temp: 102.2 (Oral), Pain: UTO, O2 sat: 99 on (Room Air), Time: 01/14/2021 22:22. EKG V paced, Sgarbosa criteria not satisfied. Initial troponin 0.046, BNP 681, D-dimer 0.50 CTA chest negative for pulmonary embolism, positive right pleural effusion which could represent pulmonary edema versus infectious process. WBCs 35.5 with bandemia, lactic acid 1.4 CXR no acute process BUN 39, creatinine 1.17 Medications: Nidhi Aspirin 325 mg Oral Given 00:59 01/15/2021 azithromycin intravenous 500 mg IV Piggy Back Given 00:53 01/15/2021 cefTRIAXone injection 2 g IV Piggy Back Given 00:27 01/15/2021 Tylenol 975 mg Oral Given 23:02 01/14/2021 Allergies/Adverse Reactions: Allergy/AdvReac Type Severity Reaction Status Date / Time codeine Allergy Hives Verified 12/11/18 12:16 meperidine HCl [From Demerol] Allergy BP dropped Verified 12/11/18 12:16 oxycodone HCl [From Percodan] Allergy Rash Verified 12/11/18 12:16 oxycodone terephthalate Allergy Rash Verified 12/11/18 12:16 [From Percodan] Sulfa (Sulfonamide Allergy Verified 12/11/18 12:16 Antibiotics) Home Medications: Medication Instructions Recorded Confirmed Type Tamsulosin HCl [Flomax] 0.4 mg PO HS 05/06/14 09/10/20 History traMADol HCl [Tramadol HCl] 50 mg PO Q6H 05/13/14 09/10/20 History Finasteride 5 mg PO HS 05/21/18 09/10/20 History Primidone 250 mg PO BID 05/21/18 09/10/20 History Carvedilol [Coreg] 6.25 mg PO BID 12/11/18 09/10/20 History Furosemide [Lasix] 20 mg PO DAILY-AC PRN 12/11/18 09/10/20 History Lisinopril [Zestril] 10 mg PO QPM 12/11/18 09/10/20 History Bisacodyl [Dulcolax] 5 mg PO DAILY PRN 09/10/20 09/10/20 History Cinnamon Bark [Cinnamon] 1,000 mg PO DAILY 09/10/20 09/10/20 History Loperamide HCl [Imodium] 2 mg PO ASDIR PRN 09/10/20 09/10/20 History Multivit-Min/FA/Lycopen/Lutein 1 each PO DAILY 09/10/20 09/10/20 History [Centrum Silver Tablet] Pantoprazole [Protonix] 40 mg PO HS 09/10/20 09/10/20 History Acetaminophen [Tylenol Extra 1,000 mg PO Q6HR tab 09/12/20 Rx Strength] Cipro 250 mg PO 0600,2000 tab 09/12/20 Rx Cyclobenzaprine [Flexeril] 5 mg PO TIDPRN PRN tab 09/12/20 Rx Enoxaparin Sodium [Lovenox] 30 mg SC 0900 syringe 09/12/20 Rx Gabapentin [Neurontin] 100 mg PO Q8HR cap 09/12/20 Rx Ibuprofen [Motrin IB] 400 mg PO Q8HR tab 09/12/20 Rx Polyethylene Glycol 3350 [Miralax] 17 gm PO DAILY pk 09/12/20 Rx Sennosides/Docusate Sodium 2 tab PO BID tab 09/12/20 Rx [Senokot S] traMADol HCl [Ultram] 50 mg PO Q6H PRN tab 09/12/20 Rx traMADol HCl [Ultram] 50 mg PO Q6HR tab 09/12/20 Rx Past History: PMHx: HTN, DM 2, BPH, atrial fibrillation, cardiomyopathy PSHx: Pacemaker, L4-L5 laminectomy FHx: Unable to obtain due to patient's altered mental status Social: The patient is a resident [place] assisted [facility]. He has no documented history of heavy alcohol intake, illicit drug use or smoking. Hospitalist HPI ROS ROS unobtainable: due to mental status All other systems reviewed; all pertinent +/- noted in HPI/Subj Hospitalist Exam General Appearance: NAD, awake alert. negative: ill appearing General - other findings: Follows commands Eye: PERRL, anicteric sclera ENT: normocephalic atraumatic, moist mucosa Neck: supple, no JVD, no lymphadenopathy Heart: RRR, no murmur, no gallops, no rubs, normal peripheral pulses Respiratory: CTAB, no wheezes, no rales, no ronchi, no tachypnea Gastrointestinal: soft, non-tender, non-distended, normal bowel sounds, no guarding, no rigidity Extremities: no cyanosis, no edema Skin: no rashes Musculoskeletal: generalized weakness Psychiatric: normal affect, oriented to person, oriented to time Hospitalist Results Result Diagrams: 01/14/21 22:55 01/14/21 22:55 Lab results: Laboratory Last Values WBC 35.5 thou/uL (4.8-10.8) H 01/14/21 22:55 RBC 3.27 mill/uL (4.70-6.10) L 01/14/21 22:55 Hgb 11.7 g/dL (14.0-18.0) L 01/14/21 22:55 Hct 35.1 % (42.0-52.0) L 01/14/21 22:55 POC Venous Hct 36.0 % (42.0-52.0) L 01/14/21 23:05 MCV 107.0 fL (78.0-98.0) H 01/14/21 22:55 MCH 35.8 pg (27.0-31.0) H 01/14/21 22:55 MCHC 33.4 g/dL (32.0-36.0) 01/14/21 22:55 RDW 13.5 % (11.5-14.5) 01/14/21 22:55 Plt Count 144 thou/uL (130-400) 01/14/21 22:55 MPV 9.3 fL (7.4-10.4) 01/14/21 22:55 Neutrophils % (Manual) 43 % (42-75) 01/14/21 22:55 Band Neuts % (Manual) 15 % (5-11) H 01/14/21 22:55 Lymphocytes % (Manual) 39 % (21-51) 01/14/21 22:55 Monocytes % (Manual) 3 % (0-10) 01/14/21 22:55 Smudge Cells SLIGHT 01/14/21 22:55 Macrocytosis SLIGHT = 6-15 cells (100X) (0-5/hpf) 01/14/21 22: D-Dimer 0.50 *mcg/mL (0.27-0.43) H 01/14/21 22:55 POC Bicarbonate Calc 26.1 mmol/L (22.0-28.0) 01/14/21 23:05 POC VBG pH 7.364 (7.320-7.430) 01/14/21 23:05 VBG pCO2 45.7 mmHg (40.0-50.0) 01/14/21 23:05 VBG pO2 21.8 mmHg (35.0-45.0) L 01/14/21 23:05 POC VBG CO2 (Calc) 27.5 mmol/L (22.0-28.0) 01/14/21 23:05 POC VBG O2 Sat (Calc) 34.4 % (60.0-85.0) L 01/14/21 23:05 POC VBG Base Excess 0.3 mmol/L (-2.0 to 3.0) 01/14/21 23:05 POC VBG Hemoglobin Calc 12.2 g/dL (14.0-18.0) L 01/14/21 23:05 POC Venous Sodium 133 mmol/L (138-145) L 01/14/21 23:05 Sodium 135 mmol/L (136-145) L 01/14/21 22:55 POC Venous Potassium 5.1 mmol/L (3.5-5.1) 01/14/21 23:05 Potassium 5.2 mmol/L (3.5-5.1) H 01/14/21 22:55 POC Venous Chloride 103 mmol/L (98-107) 01/14/21 23:05 Chloride 99 mmol/L (98-107) 01/14/21 22:55 Carbon Dioxide 25 mmol/L (23-31) 01/14/21 22:55 Anion Gap 16 mmol/L (10-20) 01/14/21 22:55 POC Elliott Anion Gap Calc 9 mmol/L (10-20) L 01/14/21 23:05 BUN 39 mg/dL (8.4-25.7) H 01/14/21 22:55 Creatinine 1.17 mg/dL (0.7-1.3) 01/14/21 22:55 Estimated GFR (MDRD) 59 01/14/21 22:55 Glucose 122 mg/dL (83-110) H 01/14/21 22:55 Lactic Acid 1.4 mmol/L (0.5-2.2) 01/14/21 22:55 Calcium 8.9 mg/dL (7.8-10.44) 01/14/21 22:55 POC Venous Ion Calcium 1.05 mmol/L (1.15-1.33) L 01/14/21 23:05 Total Bilirubin 1.4 mg/dL (0.2-1.2) H 01/14/21 22:55 AST 33 U/L (5-34) 01/14/21 22:55 ALT 49 U/L (8-55) 01/14/21 22:55 Alkaline Phosphatase 197 U/L (40-110) H 01/14/21 22:55 CK-MB (CK-2) 1.4 ng/mL (0-6.6) 01/14/21 22:55 Troponin I 0.046 ng/mL (< 0.028) H 01/14/21 22:55 B-Natriuretic Peptide 681.3 pg/mL (0-100) H 01/14/21 22:55 Serum Total Protein 6.4 g/dL (5.8-8.1) 01/14/21 22:55 Albumin 4.3 g/dL (3.4-4.8) 01/14/21 22:55 Globulin 2.1 g/dL (2.4-3.5) L 01/14/21 22:55 Albumin/Globulin Ratio 2.0 g/dL (1.2-2.2) 01/14/21 22:55 Critical Sushila Read Back Critical Value 01/14/21 23:05 EKG Status: image reviewed by me, report reviewed by me Additional Comments: 12 lead EKG interpreted by Emergency Department Physician at time of study, 12 lead EKG shows normal sinus rhythm, Conduction normal, ST segments normal, Ventricularly paced rhythm, sgarbossa criteria not satisfied. Chest x-ray Status: report reviewed by me Additional Comments: IMPRESSION: 1. Atherosclerosis 2. No acute cardiopulmonary process. CT scan - chest Status: report reviewed by me Additional Comments: No PE identified. Patchy opacities are seen within the lung bases. There is also a small right sided pleural effusion. These findings may represent infection versus pulmonary edema. Hospitalist H&P A/P (1) Sepsis without septic shock Code(s): A41.9 - SEPSIS, UNSPECIFIED ORGANISM Status: Acute (2) AMS (altered mental status) Code(s): R41.82 - ALTERED MENTAL STATUS, UNSPECIFIED Status: Acute Qualifiers: Altered mental status type: disorientation Qualified Code(s): R41.0 - Disorientation, unspecified (3) CHF exacerbation Code(s): I50.9 - HEART FAILURE, UNSPECIFIED Status: Acute (4) NSTEMI (non-ST elevated myocardial infarction) Code(s): I21.4 - NON-ST ELEVATION (NSTEMI) MYOCARDIAL INFARCTION Status: Acute (5) ISAC (acute kidney injury) Code(s): N17.9 - ACUTE KIDNEY FAILURE, UNSPECIFIED Status: Acute (6) Chronic atrial fibrillation Code(s): I48.20 - CHRONIC ATRIAL FIBRILLATION, UNSPECIFIED Status: Chronic (7) DM2 (diabetes mellitus, type 2) Status: Chronic Qualifiers: Diabetes mellitus termite treater insulin use: without penitentiary use (8) HTN (hypertension) Code(s): I10 - ESSENTIAL (PRIMARY) HYPERTENSION Status: Chronic Qualifiers: Hypertension type: essential hypertension Qualified Code(s): I10 - Essential (primary) hypertension (9) BPH (benign prostatic hyperplasia) Code(s): N40.0 - BENIGN PROSTATIC HYPERPLASIA WITHOUT LOWER URINRY TRACT SYMP Status: Chronic Plan: A patient with cardiomyopathy, atrial fibrillation, DM 2, HTN that is a resident at [facility] presents for AMS. CTA chest negative pulmonary embolism, positive right pleural effusion, edema versus infection. WBCs 35.5 with bandemia, LA 1.4. #Sepsis without septic shock Suspected pulmonary process. Presented febrile, WBCs 35.5 with bandemia, LA 1.4 Review of labs, WBCs averaged 20,000. Blood pressure mildly hypertensive, possible CHF exacerbation. No IV fluid resuscitation for now. Continue to monitor BP. Given azithromycin and Rocephin in ED. We will start cefepime and doxycycline. Check procalcitonin. 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 Found AMS/confused on toilet. A: A&O x 2, unknown baseline mentation. Order CT brain. #CHF exacerbation CT chest right pleural effusion edema versus infectious process. History of cardiomyopathy with pacemaker. EKG V paced, no ST elevations. BNP 681, baseline appears similar on 09/20. Takes Lasix 20 mg p.o. as needed at home. We will give single dose Lasix 40 mg IVP and evaluate response. Daily weight, low-sodium diet, fluid restriction. Order echocardiogram. Review home med list from previous discharge Restart Coreg, hold lisinopril due to ISAC. #NSTEMI EKG V paced, initial troponin 0.046 Trend troponins, check TSH, FLP, mag level. Given full dose aspirin in ED. #ISAC Suspected prerenal due to problem #1 and #2 Presented creatinine 1.17, baseline appears to be 0.81 Order renal ultrasound. Hold home dose lisinopril. Avoid nephrotoxic medications. Recheck level in a.m. #Chronic atrial fibrillation Presented V paced. Previously discharged on low-dose Eliquis twice daily. We will restart when home medications reconciled. #DM2 Mild ISS. Accu-Cheks AC/HS #Hypertension Restart home dose Coreg Hold dose lisinopril due to ISAC. #BPH Restart home dose Flomax No pharmacological DVT prophylaxis. Protonix for GI prophylaxis. CODE STATUS full code. Discussed case with attending physician, Dr. Harp, who agrees with plan of care
[2021-01-15 01:10] LABS: Bilirubin Negative (Negative); Blood, Urine Negative (Negative); Clarity Clear (Clear); Glucose, Urine (Dipstick) Normal (Negative); Ketone, Urine Negative (Negative); Leukocyte Negative Leu/uL (Negative); Nitrite Negative (Negative); Protein, Urine (Dipstick) 10 mg/dL (Neg-Trace); Specific Gravity, Urine 1.025 (1.002-1.036); Urobilinogen Normal mg/dL (Less than 2)
[2021-01-15] MEDS ORDERED: traMADol HCl 50 MG TAB PO PRN (01:39)
[2021-01-15] MEDS ORDERED: Dextrose 5% in Water 1,000 ML IV PRN (01:42)
[2021-01-15] MEDS ORDERED: HumaLOG 300 UNITS/3 ML VIAL SC PRN ×2 (01:42)
[2021-01-15] MEDS ORDERED: Dextrose 50% Abboject 50 ML SYRINGE SLOW IVP PRN (01:42)
[2021-01-15] MEDS ORDERED: Nitroglycerin 0.4 MG TAB (25 Tab Bottle) SL PRN (01:43)
[2021-01-15] MEDS ORDERED: Furosemide 40 MG/4 ML VIAL SLOW IVP SCH (01:45)
[2021-01-15] MEDS ORDERED: Ondansetron PF 4 MG/2 ML Vial IVP PRN (01:47)
[2021-01-15] MEDS ORDERED: Ondansetron ODT 4 MG TAB PO PRN (01:47)
[2021-01-15] MEDS ORDERED: Acetaminophen 325 MG TAB PO PRN (01:47)
[2021-01-15 02:36] LABS: SARS-CoV-2 NAA Rapid Test Not Detected (NotDetected)
[2021-01-15 02:42] LABS: Troponin I 0.051 ng/mL (< 0.028)
[2021-01-15 03:00] LABS: Cardiac Risk 2.5 (Less than 4.5); Magnesium 2.1 mg/dL (1.6-2.6)
[2021-01-15 06:22] LABS: Troponin I 0.042 ng/mL (< 0.028)
--- NOTE | 2021-01-15 07:37 | CT ---
PRELIMINARY REPORT/[facility]/AFTER HOURS PROCEDURE CT HEAD WITHOUT INTRAVENOUS CONTRAST: CLINICAL HISTORY: AMS. TECHNIQUE: Axial computed tomography images of the head/brain without intravenous contrast. COMPARISON: None provided. FINDINGS: BRAIN: No acute intraparenchymal hemorrhage. No mass lesion. No CT evidence for acute territorial inf arct. No midline shift or extra-axial collection. VENTRICLES: No hydrocephalus. ORBITS: No acute orbital finding. SINUSES AND MASTOIDS: The paranasal sinuses and mastoid air cells are clear. SOFT TISSUES: No significant facial or scalp soft tissue swelling evident. No radiopaque foreign body is seen. BONES: No acute skull fracture. IMPRESSION: No acute intracranial abnormality. ELECTRONICALLY SIGNED BY: Shayne Lyn DO Jan 15, 2021 2:53:14 AM SPORTS REPORTER This report is intended for review by the ordering physician only, in accordance of law. If you recei ve this report in error, please call [facility] at [phone]. CT HEAD WITHOUT CONTRAST: HISTORY: Altered mental status. COMPARISON: 09/09/2020 FINDINGS: Hemorrhage: No intraparenchymal hemorrhage or extra-axial hematoma. Brain parenchyma: Cortical guerra-white matter differentiation is preserved. No mass effect or midline shift. Basilar cisterns are patent. Ventricular system: Ventricles and sulci are patent and symmetric. Calvarium: Intact. Sinuses and mastoid air cells: Adequate aeration. IMPRESSION: 1. This report is in agreement with initial report by [facility]. 2. No acute intracranial process. CODE QA Transcribed Date/Time: 01/15/2021 10:48 AM
--- NOTE | 2021-01-15 08:08 | ULT ---
Exam: Bilateral renal ultrasound HISTORY: Acute kidney insufficiency COMPARISON: None FINDINGS: Right kidney: Normal cortical echotexture. No hydronephrosis. 5.0 x 5.4 x 4.9 cm anechoic focus likel y representing a pelvic cyst. There is right renal cortical thinning. Right kidney measurements: 4.7 x 12.9 x 4.6 cm. Left kidney: Normal cortical echotexture. No hydronephrosis. 2.0 x 2.4 cm exophytic cyst emanates fro m the left renal cortex. There is left renal cortical thinning. Left kidney measurements 4.5 x 5.8 x 11.4 cm. Urinary bladder: Irregular mucosa. Bilateral ureteral jets are identified. IMPRESSION: 1. No hydronephrosis 2. Bilateral renal cortical thinning 3. Irregular urinary bladder mucosa. Consider cystoscopy.
--- NOTE | 2021-01-15 08:40 | CT ---
PRELIMINARY REPORT/[facility]/AFTER HOURS PROCEDURE CTA CHEST WITH INTRAVENOUS CONTRAST: CLINICAL HISTORY: Patient found on toilet appearing confused. LSN 2000 tonight. Unknown history of patient found on demetrice let appearing confused. LSN 2000 tonight. Unknown history of dementia per EMS. Patient oriented to pe rson and time. States he is in the assisted care facility. Reoriented to being in the ER by staff. TECHNIQUE: Axial CTA images of the chest with intravenous contrast. Three-dimensional MIP/volume rendered reform ations were performed. CONTRAST: With Isovue-370 70 mL. COMPARISON: None provided. FINDINGS: PULMONARY ARTERIES: There is no intraluminal filling defect suspicious for PE. AORTA: No aortic aneurysm. LUNGS: Patchy bilateral ground glass opacities are seen within the lung bases. PLEURAL SPACES: Small right-sided pleural effusion. No pneumothorax. HEART AND MEDIASTINUM: Heart is markedly enlarged. Coronary calcifications present. Pacemaker device is seen. LYMPH NODES: No lymphadenopathy. BONES: No focal osseous abnormality or acute fracture. CHEST WALL AND UPPER ABDOMEN: Images through the upper abdomen are unremarkable. The chest wall is un remarkable. IMPRESSION: 1. No pulmonary embolism identified. Some limited evaluation of the distal segmental and subsegmenta l pulmonary arteries due to motion. 2. Patchy opacities are seen within the lung bases. There is also a small right-sided pleural effusi on. These findings may represent infection or pulmonary edema. 3. Marked cardiac enlargement with coronary calcifications. ELECTRONICALLY SIGNED BY: Fransisco Mcintosh DO Jan 15, 2021 12:36:40 AM ASSEMBLER W[employer] MESH GATE This report is intended for review by the ordering physician only, in accordance of law. If you recei ve this report in error, please call [facility] at [phone]. FINAL REPORT EMERGENCY AFTER HOURS CT ANGIOGRAM CHEST WITH 3D RENDERIN01/15/21 12:12 a.m. FINDINGS: No convincing CT evidence for acute pulmonary embolism. Small bilateral pleural effusions and patchy bibasilar parenchymal changes and some parenchymal changes in the region of the right middle lobe, no nspecific, which could represent infection and/or pulmonary edema. This report agrees with the preliminary report. CODE QA POS: RRE
[2021-01-15] MEDS: Carvedilol 6.25 MG TAB PO SCH ×2 (09:34→20:42)
[2021-01-15] MEDS: Primidone 50 MG TAB PO SCH ×2 (09:35→21:04)
[2021-01-15] MEDS: Cefepime 2 GM in Sodium Chloride 0.9% 100 ML IVPB SCH ×2 (09:35→20:40)
--- NOTE | 2021-01-15 11:52 | PDOC.BPN ---
- Brief Progress Note Encounter Date: 01/15/21 Encounter Time: 09:00 pt recently admitted today, pt seen on f/u for sepsis secondary to pneumonia. patient refers feeling better. denies any fever chills nausea vomiting cough or sob he is alert awake and ox3, nurse refers he had been very sleepy since he was brought to room at 4am. labs and history reviewed, procalcitonin is normal but due to inital presentation with fever leukocytosis and altered mental state and with noted clinical improvement will continue current abx treatment. of note patient leukocytosis seems to be chronic, when more stable or when infection is under control consider an H/O evaluation if this does not improve
[2021-01-15] MEDS: Tamsulosin HCl 0.4 MG CAP PO SCH (20:42)
--- NOTE | 2021-01-16 09:47 | PDOC.HOSPP ---
- Subjective Encounter Date: 01/16/21 Encounter Time: 09:00 Subjective: Patient feeling much better. He is now oriented and alert x3. No shortness of breath or chest pain. No coughing. No other complaints. - Objective Vital Signs & Weight: Vital Signs (12 hours) Temp Pulse Resp BP Pulse Ox 01/16/21 07:50 98.3 F 64 18 157/72 H 98 Weight Weight 167 lb 12.8 oz I&O: 01/15/21 01/16/21 01/17/21 06:59 06:59 06:59 Intake Total 495 1160 Balance 495 1160 Result Diagrams: 01/14/21 22:55 01/14/21 22:55 Additional Labs: Accuchecks 01/15/21 01/15/21 01/15/21 21:23 16:33 12:13 POC Glucose 119 H 98 128 H Hospitalist ROS - Review of Systems Constitutional: denies: fever, chills Respiratory: denies: cough, shortness of breath Cardiovascular: denies: chest pain, palpitations, orthopnea Gastrointestinal: denies: nausea, vomiting, abdominal pain Genitourinary: denies: dysuria, hematuria - Medication Medications: Active Medications Generic Name Dose Route Start Last Admin Trade Name Freq PRN Reason Stop Dose Admin Carvedilol 6.25 mg 01/15/21 09:00 01/15/21 20:42 Carvedilol 6.25 Mg Tab PO 6.25 mg BID NEL Administration Cefepime HCl 2 gm/ Sodium 100 mls @ 200 mls/hr 01/15/21 08:00 01/15/21 20:40 Chloride IVPB 100 mls 0800,2000 NEL Administration Doxycycline Hyclate 100 mg/ 100 mls @ 100 mls/hr 01/15/21 06:00 01/15/21 18:14 Sodium Chloride IVPB 100 mls 0600,1800 NEL Administration Pantoprazole Sodium 40 mg 01/15/21 21:00 01/15/21 20:42 Pantoprazole 40 Mg Tab PO 40 mg HS NEL Administration Primidone 250 mg 01/15/21 09:00 01/15/21 21:04 Primidone 50 Mg Tab PO 250 mg BID NEL Administration Tamsulosin HCl 0.4 mg 01/15/21 21:00 01/15/21 20:42 Tamsulosin Hcl 0.4 Mg Cap PO 0.4 mg HS NEL Administration Hospitalist Exam Vitals: Vital Signs (12 hours) Temp Pulse Resp BP Pulse Ox 01/16/21 07:50 98.3 F 64 18 157/72 H 98 Weight Weight 167 lb 12.8 oz General Appearance: NAD, awake alert ENT: moist mucosa Heart: no murmur, no gallops, no rubs, irregular Respiratory: CTAB, no wheezes, no rales, no ronchi Gastrointestinal: soft, non-tender, non-distended, normal bowel sounds Extremities: no edema Neurological - other findings: Bilateral upper extremities with resting tremor Psychiatric: normal affect, normal behavior, A&O x 3 Hosp A/P - Plan A patient with cardiomyopathy, atrial fibrillation, DM 2, HTN that is a resident at [facility] presents for AMS. CTA chest negative pulmonary embolism, positive right pleural effusion, edema versus infection. WBCs 35.5 with bandemia, LA 1.4. #Sepsis without septic shock Suspected pulmonary process. Presented febrile, WBCs 35.5 with bandemia, LA 1.4 Review of labs, WBCs averaged 20,000. Blood pressure mildly hypertensive, possible CHF exacerbation. No IV fluid resuscitation for now. Continue to monitor BP. Given azithromycin and Rocephin in ED. We have started cefepime and doxycycline. Check procalcitonin. 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 Found AMS/confused on toilet. A: A&O x 2, unknown baseline mentation. Order CT brain. Resolving #CHF exacerbation CT chest right pleural effusion edema versus infectious process. History of cardiomyopathy with pacemaker. EKG V paced, no ST elevations. BNP 681, baseline appears similar on 09/20. Takes Lasix 20 mg p.o. as needed at home. We will give single dose Lasix 40 mg IVP and evaluate response. Daily weight, low-sodium diet, fluid restriction. Order echocardiogram. Review home med list from previous discharge Restart Coreg, hold lisinopril due to ISAC. #NSTEMItype II myocardial infarction secondary to sepsis EKG V paced, initial troponin 0.046no change on serial markers Given full dose aspirin in ED. #ISAC Suspected prerenal due to problem #1 and #2 Presented creatinine 1.17, baseline appears to be 0.81 Order renal ultrasound. Hold home dose lisinopril. Avoid nephrotoxic medications. Recheck level in a.m. #Chronic atrial fibrillation Presented V paced. Previously discharged on low-dose Eliquis twice daily. We will restart when home medications reconciled. #DM2 Mild ISS. Accu-Cheks AC/HS #Hypertension Restart home dose Coreg Hold dose lisinopril due to ISAC. #BPH Restart home dose Flomax No pharmacological DVT prophylaxis. Protonix for GI prophylaxis. CODE STATUS full code. CT HEAD WITHOUT CONTRAST: HISTORY: Altered mental status. COMPARISON: 09/09/2020 FINDINGS: Hemorrhage: No intraparenchymal hemorrhage or extra-axial hematoma. Brain parenchyma: Cortical guerra-white matter differentiation is preserved. No mass effect or midline shift. Basilar cisterns are patent. Ventricular system: Ventricles and sulci are patent and symmetric. Calvarium: Intact. Sinuses and mastoid air cells: Adequate aeration. IMPRESSION: 1. This report is in agreement with initial report by [facility]. 2. No acute intracranial process.
[2021-01-16] MEDS ORDERED: Cefepime 2 GM VIAL ONE (11:09)
[2021-01-16] MEDS ORDERED: Primidone 50 MG TAB ONE (11:09)
[2021-01-16] MEDS ORDERED: Carvedilol 6.25 MG TAB ONE ×2 (11:09→11:39)
[2021-01-16] MEDS ORDERED: Doxycycline Hyclate 100 MG VIAL ONE (11:11)
[2021-01-16] MEDS ORDERED: Bisacodyl 5 MG TAB PO PRN (15:44)
[2021-01-16] MEDS ORDERED: Loperamide HCl 2 MG CAP PO PRN (15:44)
[2021-01-16] MEDS ORDERED: Metolazone 2.5 MG TAB PO PRN (15:44)
[2021-01-16] MEDS ORDERED: Senokot S 8.6-50 MG TAB PO PRN (15:44)
[2021-01-16] MEDS ORDERED: Cyclobenzaprine 10 MG TAB PO PRN (15:44)
[2021-01-16] MEDS ORDERED: Simethicone Chewable 80 MG TAB PO PRN (15:44)
[2021-01-16 18:23] LABS: Anion Gap 14 mmol/L (10-20); BUN (Urea Nitrogen) 42 mg/dL (8.4-25.7); Calc. Creatinine Clearance 55 mL/min (70-130); Calcium 8.4 mg/dL (7.8-10.44); Carbon Dioxide 21 mmol/L (23-31); Chloride 100 mmol/L (98-107); Glucose 115 mg/dL (83-110); Potassium 4.3 mmol/L (3.5-5.1); Sodium 131 mmol/L (136-145)
[2021-01-16] MEDS ORDERED: Loratadine 10 MG TAB PO SCH (21:00)
[2021-01-16] MEDS: Gabapentin 100 MG CAP PO SCH (22:12)
[2021-01-16] MEDS: Furosemide 20 MG TAB PO SCH (22:12)
[2021-01-16] MEDS: Finasteride 5 MG TAB PO SCH (22:13)
[2021-01-16] MEDS: Tamsulosin HCl 0.4 MG CAP PO SCH (22:13)
[2021-01-16] MEDS: Carvedilol 6.25 MG TAB PO SCH (22:15)
[2021-01-16] MEDS: Primidone 50 MG TAB PO SCH (23:32)
[2021-01-16] MEDS: Cefepime 2 GM in Sodium Chloride 0.9% 100 ML IVPB SCH (23:34)
--- NOTE | 2021-01-17 08:19 | PDOC.HOSPP ---
- Subjective Encounter Date: 01/17/21 Encounter Time: 11:00 Subjective: Patient without complaints. He does have a chronic itchy rash on bilateral upper and lower extremities that they have been trying various things for at his assisted living. No more confusion. No more fever. - Objective Vital Signs & Weight: Vital Signs (12 hours) Temp Pulse Resp BP BP Pulse Ox 01/17/21 02:57 98.3 F 60 20 150/89 H 99 01/16/21 22:15 98.5 F 76 25 H 165/67 H 165/67 H 97 Weight Weight 167 lb 12.807 oz I&O: 01/16/21 01/17/21 01/18/21 06:59 06:59 06:59 Intake Total 1160 1150 Balance 1160 1150 Result Diagrams: 01/17/21 08:30 01/17/21 08:30 Additional Labs: Accuchecks 01/16/21 01/16/21 01/16/21 19:58 16:29 10:52 POC Glucose 176 H 108 H 159 H 01/16/21 05:39 POC Glucose 102 H Hospitalist ROS - Review of Systems Constitutional: denies: fever, chills Respiratory: denies: cough, shortness of breath Cardiovascular: denies: chest pain, palpitations Gastrointestinal: denies: nausea, vomiting, abdominal pain - Medication Medications: Active Medications Generic Name Dose Route Start Last Admin Trade Name Freq PRN Reason Stop Dose Admin Carvedilol 6.25 mg 01/15/21 09:00 01/16/21 22:15 Carvedilol 6.25 Mg Tab PO 6.25 mg BID NEL Administration Finasteride 5 mg 01/16/21 21:00 01/16/21 22:13 Finasteride 5 Mg Tab PO 5 mg HS NEL Administration Furosemide 20 mg 01/16/21 21:00 01/16/21 22:12 Furosemide 20 Mg Tab PO 20 mg BID NEL Administration Gabapentin 100 mg 01/16/21 21:00 01/16/21 22:12 Gabapentin 100 Mg Cap PO 100 mg TID NEL Administration Cefepime HCl 2 gm/ Sodium 100 mls @ 200 mls/hr 01/15/21 08:00 01/16/21 23:34 Chloride IVPB 100 mls 0800,2000 NEL Administration Doxycycline Hyclate 100 mg/ 100 mls @ 100 mls/hr 01/15/21 06:00 01/16/21 17:39 Sodium Chloride IVPB 100 mls 0600,1800 NEL Administration Loratadine 10 mg 01/16/21 21:00 01/16/21 22:16 Loratadine 10 Mg Tab PO 10 mg HS NEL Administration Pantoprazole Sodium 40 mg 01/16/21 21:00 01/16/21 22:13 Pantoprazole 40 Mg Tab PO 40 mg HS NEL Administration Primidone 250 mg 01/15/21 09:00 01/16/21 23:32 Primidone 50 Mg Tab PO 250 mg BID NEL Administration Tamsulosin HCl 0.4 mg 01/15/21 21:00 01/16/21 22:13 Tamsulosin Hcl 0.4 Mg Cap PO 0.4 mg HS NEL Administration Hospitalist Exam Vitals: Vital Signs (12 hours) Temp Pulse Resp BP BP Pulse Ox 01/17/21 02:57 98.3 F 60 20 150/89 H 99 01/16/21 22:15 98.5 F 76 25 H 165/67 H 165/67 H 97 Weight Weight 167 lb 12.807 oz General Appearance: NAD, awake alert ENT: moist mucosa Heart: RRR, no murmur, no gallops, no rubs Respiratory: CTAB, no wheezes, no rales, no ronchi Gastrointestinal: soft, non-tender, non-distended, normal bowel sounds Extremities: no edema Psychiatric: normal affect, normal behavior, A&O x 3 Hosp A/P - Plan A patient with cardiomyopathy, atrial fibrillation, DM 2, HTN that is a resident at [facility] living presents for AMS. CTA chest negative pulmonary embolism, positive right pleural effusion, edema versus infection. WBCs 35.5 with bandemia, LA 1.4. #Sepsis without septic shock Suspected pulmonary process. Presented febrile, WBCs 35.5K with bandemia, now down to 17K likely his baseline. Review of labs, WBCs averaged 20,000. Blood pressure mildly hypertensive, possible CHF exacerbation. No IV fluid resuscitation for now. Continue to monitor BP. Given azithromycin and Rocephin in ED. We have started cefepime and doxycycline. 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 Found AMS/confused on toilet. A: A&O x 2 initially, now alert and oriented x3. CT brain negative. Resolving #CHF exacerbation CT chest right pleural effusion edema versus infectious process. History of cardiomyopathy with pacemaker. EKG V paced, no ST elevations. BNP 681, baseline appears similar on 09/20. Takes Lasix 20 mg p.o. as needed at home. We will give single dose Lasix 40 mg IVP and evaluate response. Daily weight, low-sodium diet, fluid restriction. Ordered echocardiogram. See results below. Appreciate Dr. Jhaveri's assistance. #NSTEMItype II myocardial infarction secondary to sepsis EKG V paced, initial troponin 0.046no change on serial markers Given full dose aspirin in ED. #ISAC Suspected prerenal due to problem #1 and #2 Presented creatinine 1.17, now returned to baseline Can resume lisinopril #Chronic atrial fibrillation Presented V paced. Previously discharged on low-dose Eliquis twice daily. We will restart when home medications reconciled. #DM2 Mild ISS. Accu-Cheks AC/HS #Hypertension Restart home dose Coreg We will resume lisinopril. #BPH Restart home dose Flomax No pharmacological DVT prophylaxis. Protonix for GI prophylaxis. CODE STATUS full code. Disposition: Patient is doing well with physical therapy. No more fever or evidence of sepsis. No evidence for current congestive heart failure exacerbation per cardiology. Patient can likely be discharged back to assisted living tomorrow. I did call patient's daughter, Maribel Rhodes, and updated her on her father's progress. CT HEAD WITHOUT CONTRAST: HISTORY: Altered mental status. COMPARISON: 09/09/2020 FINDINGS: Hemorrhage: No intraparenchymal hemorrhage or extra-axial hematoma. Brain parenchyma: Cortical guerra-white matter differentiation is preserved. No mass effect or midline shift. Basilar cisterns are patent. Ventricular system: Ventricles and sulci are patent and symmetric. Calvarium: Intact. Sinuses and mastoid air cells: Adequate aeration. IMPRESSION: 1. This report is in agreement with initial report by [facility]. 2. No acute intracranial process. Echocardiogram: Ejection fraction 50 to 55% Mild hypokinesis Moderate to severe tricuspid regurgitation Mild aortic regurgitation with mild valvular sclerosis Mild to moderate mitral regurgitation
[2021-01-17 08:42] LABS: Hemoglobin 10.6 g/dL (14.0-18.0); Mean Corpuscular HGB CONC 33.6 g/dL (32.0-36.0); Mean Corpuscular Hemoglobin 36.2 pg (27.0-31.0); RBC Distribution Width 13.4 % (11.5-14.5); Red Blood Cell (RBC) Count 2.94 mill/uL (4.70-6.10); White Blood Cell (WBC) Count 17.5 thou/uL (4.8-10.8)
[2021-01-17 08:57] LABS: Anion Gap 15 mmol/L (10-20); BUN (Urea Nitrogen) 35 mg/dL (8.4-25.7); Calc. Creatinine Clearance 63 mL/min (70-130); Calcium 8.3 mg/dL (7.8-10.44); Carbon Dioxide 22 mmol/L (23-31); Chloride 102 mmol/L (98-107); Glucose 110 mg/dL (83-110); Potassium 4.2 mmol/L (3.5-5.1); Sodium 135 mmol/L (136-145)
[2021-01-17] MEDS: Cefepime 2 GM in Sodium Chloride 0.9% 100 ML IVPB SCH ×3 (09:44→20:46)
[2021-01-17] MEDS: Carvedilol 6.25 MG TAB PO SCH ×3 (09:47→20:52)
[2021-01-17] MEDS: Primidone 50 MG TAB PO SCH ×3 (09:47→21:55)
[2021-01-17] MEDS: Amlodipine 5 MG TAB PO SCH (09:48)
[2021-01-17] MEDS: Gabapentin 100 MG CAP PO SCH ×3 (09:49→20:49)
[2021-01-17] MEDS: Multivitamin W/ Minerals 1 TAB PO SCH (09:49)
[2021-01-17] MEDS: Furosemide 20 MG TAB PO SCH ×2 (09:50→20:48)
[2021-01-17] MEDS: Lidocaine 5% Patch TD SCH (09:51)
[2021-01-17] MEDS: Polyethylene Glycol 3350 17 GM Packet PO SCH (09:52)
[2021-01-17 10:18] LABS: Band 4 % (5-11); Eosinophils 1 % (0-10); Lymphocytes 49 % (21-51); Monocytes 3 % (0-10); Neutrophil 43 % (42-75)
[2021-01-17 10:19] LABS: Small Platelets MODERATE
[2021-01-17 10:21] LABS: Mean Platelet Volume 9.2 fL (7.4-10.4); Platelet Count 108 thou/uL (130-400)
[2021-01-17 10:24] LABS: MDiff Complete? YES; Platelet Morphology Comment Appears Decreased
--- NOTE | 2021-01-17 11:28 | CON ---
DATE OF CONSULTATION: HISTORY OF PRESENT ILLNESS: The patient 89-year-old gentleman, who presents for evaluation of altered mental status. The patient has a history of a cardiomyopathy. He had placement of electronic pacemaker in May of 2014. He developed a progressive cardiomyopathy. The patient had an upgrade to a biventricular pacemaker in 2018, also has a history of paroxysmal atrial fibrillation. The patient was in his usual state of health when he presented with altered mental status. The patient did not recall having any fevers or chills. The patient did not have any chest discomfort. PAST MEDICAL HISTORY: 1. History of cardiomyopathy. 2. Hypertension. 3. Diabetes mellitus. 4. Atrial fibrillation. 5. BPH. PAST SURGICAL HISTORY: He has had a laminectomy. SOCIAL HISTORY: Lives in [place]. Nonsmoker. MEDICATIONS: See nursing list. ALLERGIES: O CODEINE, MEPERIDINE, OXYCODONE, AND SULFA DRUGS. PHYSICAL EXAMINATION: GENERAL: Elderly gentleman, in no acute distress. VITAL SIGNS: Blood pressure 166/76. NECK: Showed no jugular venous distention. LUNGS: Clear to auscultation. HEART: Regular rate and rhythm. Normal S1, S2 with a 3/6 holosystolic murmur. ABDOMEN: Nondistended. EXTREMITIES: Showed no edema. VASCULAR: Radial pulses 2+. LABORATORY DATA: Sodium 135, potassium 4.2, chloride 102, bicarbonate 22, BUN 35, creatinine 0.86, glucose 110. White blood cell count was 17.5, hemoglobin 10.6, hematocrit 31.6, and his platelets are 108. His chest x-ray revealed cardiomegaly with no infiltrates or edema. His echocardiogram revealed normal left ventricular ejection fraction 50% to 55%,mild to moderate mitral regurgitation, moderate to severe tricuspid regurgitation. IMPRESSION: 1. Altered mental status. 2. Sepsis. 3. History of cardiomyopathy prior to biventricular pacing. 4. History of atrial fibrillation. 5. History of biventricular pacemaker. 6. Diabetes mellitus. 7. Hypertension. PLAN: This patient presents with sepsis and altered mental status. Do not be appear to be in congestive heart failure. His BNP is slightly elevated. The patient being treated with IV antibiotics. We will interrogate the patient's pacemaker. We will follow this patient with you through his hospitalization. Job ID: [id number] [facility]
[2021-01-17 15:31] LABS: Hemoglobin 10.5 g/dL (14.0-18.0); Mean Platelet Volume 10.8 fL (7.4-10.4); Platelet Count 106 thou/uL (130-400); RBC Distribution Width 13.6 % (11.5-14.5); White Blood Cell (WBC) Count 18.2 thou/uL (4.8-10.8)
[2021-01-17] MEDS: Primidone 250 MG TAB PO SCH (15:35)
[2021-01-17 15:46] LABS: Band 11 % (5-11); Eosinophils 5 % (0-10); Lymphocytes 20 % (21-51); MDiff Complete? YES; Macrocytosis SLIGHT = 6-15 cells (100X) (0-5/hpf); Monocytes 9 % (0-10); Neutrophil 44 % (42-75); Platelet Morphology Comment Appears Decreased; Polychromasia SLIGHT = 2-3 cells (100X) (0-2/hpf); Reactive Lymphocytes 11 % (0-10)
[2021-01-17] MEDS ORDERED: hydrOXYzine 25 MG TAB PO PRN (15:47)
[2021-01-17] MEDS: Finasteride 5 MG TAB PO SCH (20:49)
[2021-01-17] MEDS: Tamsulosin HCl 0.4 MG CAP PO SCH (20:50)
[2021-01-17] MEDS: Lisinopril 20 MG TAB PO SCH (20:50)
[2021-01-17] MEDS: Lidocaine Patch Removal TOP SCH (20:51)
[2021-01-18 07:48] VITALS: BMI 26.9
[2021-01-18] MEDS: Cefepime 2 GM in Sodium Chloride 0.9% 100 ML IVPB SCH (11:01)
[2021-01-18] MEDS: Primidone 50 MG TAB PO SCH ×2 (11:04→21:56)
[2021-01-18] MEDS: Lidocaine 5% Patch TD SCH (11:07)
[2021-01-18] MEDS: Gabapentin 100 MG CAP PO SCH ×2 (11:08→17:06)
[2021-01-18] MEDS: Polyethylene Glycol 3350 17 GM Packet PO SCH (11:08)
[2021-01-18] MEDS: Carvedilol 6.25 MG TAB PO SCH ×2 (11:09→17:26)
[2021-01-18] MEDS: Amlodipine 5 MG TAB PO SCH (11:09)
[2021-01-18] MEDS: Furosemide 20 MG TAB PO SCH (11:09)
[2021-01-18] MEDS: Loratadine 10 MG TAB PO SCH (11:09)
[2021-01-18] MEDS: Multivitamin W/ Minerals 1 TAB PO SCH (11:09)
[2021-01-18] MEDS: Primidone 250 MG TAB PO SCH (11:29)
--- NOTE | 2021-01-18 12:33 | PQF ---
CLINICAL DOCUMENTATION CLARIFICATION FORM: Dear Dr. Bong Rivera; Dr. Osuna Date: 01/18/2021; 01/19/2021 Please exercise your independent, professional judgment in responding to the clarification form. Clinical indicators are provided on the bottom of this form for your review. Please check appropriate box(es): [ ] Encephalopathy: Type: [ ] Acute [ ] Subacute [ ] Chronic Etiology: [ ] Metabolic [ ] Toxic [ ] Septic [ x ] Unspecified [ ] Other (please specify) [ ] Other diagnosis [ x] Unable to determine In addition, please specify: Present on Admission (POA): [ ] Yes [ ] No [ ] Unable to determine For continuity of documentation, please document condition throughout progress notes and discharge summary. Thank You. To be completed by CDI/Coding staff for physician review: CLINICAL INDICATORS - SIGNS / SYMPTOMS / LABS / RESULTS AND LOCATION IN EMR *ER Record 01/15: Doctor Notes: 89 yo presents from [facility] with decreased mental status, fever, tachycardia and hypoxia. *H&P 01/15 (Bella): A/P: Sepsis without septic shock. Suspected pulmonary process. Altered mental status. CHF exacerbation NSTEMI ISAC *11/16 pn (Miguel) Subjective: No more confusion. No more fever. A/P: AMS Found AMS/confused on toilet A&O x 2 initially, now alert and oriented x3. RISK FACTORS / RESULTS AND LOCATION IN EMR *H&P 01/15 (Bella): HPI: 89 yo with PMH HTN, DM 2, A fib, cardiomyopathy. A/P: Sepsis without septic shock. CHF exacerbation. NSTEMI. ISAC *01/15 Brief pn (Anthony): pt seen in f/u for sepsis secondary to pneumonia. TREATMENTS / RESULTS AND LOCATION IN EMR *Order 01/15-01/18: Cefepime 2 gm IV 08, 1999 clinical indication Pneumonia. *H&P 01/15 (Bella): A/P: ISAC. Hold home dose Lisinopril. Avoid nephrotoxic medications. Thank you, Cari Aragon RN, BSN [email or web address] Cell This is a permanent part of the Medical Record [facility]
--- NOTE | 2021-01-18 15:06 | ULT ---
ULTRASOUND LEFT UPPER EXTREMITY VENOUS DOPPLER: History: ICD placement. Evaluate for thrombus. Comparison: None FINDINGS: Real-time grayscale, color, and spectral analysis of the left lower extremity venous system is perfor med. The internal jugular, subclavian vein, as well as the axillary cephalic, basilic, and brachial b ranches interrogated. Normal flow, augmentation, and compression. Mild superficial soft tissue swelling. IMPRESSION: No deep venous thrombosis. POS: HOME
[2021-01-18] MEDS: Furosemide 20 MG/2 ML VIAL SLOW IVP SCH (15:20)
--- NOTE | 2021-01-18 15:51 | PDOC.HOSPP ---
- Subjective Encounter Date: 01/18/21 Encounter Time: 15:50 Subjective: Patient seen and examined. This is an 89 yr old admitted with AMS and suspected sepsis from pneumonia. He has been on antibiotics in the with a combination of cefepime and doxycycline. His most recent chest x-ray however did not appear to show any pneumonia. He was found to have a diffused rash on his upper and lower extremities . I suspect this could be from the antibiotics as well. He has remained afebrile however. He has chronic elevation in his white blood cell count. - Objective Vital Signs & Weight: Vital Signs (12 hours) Temp Pulse Pulse Pulse Resp BP BP 01/18/21 10:56 98.8 F 60 16 01/18/21 10:38 97.7 F 60 16 01/18/21 09:36 60 60 162/80 H 159/70 H 01/18/21 04:00 98.8 F 63 20 BP Pulse Ox 01/18/21 10:56 160/73 H 100 01/18/21 10:38 162/80 H 100 01/18/21 09:36 01/18/21 04:00 162/51 H Weight Weight 177 lb 0.146 oz I&O: 01/17/21 01/18/21 01/19/21 06:59 06:59 06:59 Intake Total 1150 750 Balance 1150 750 Result Diagrams: 01/17/21 08:30 01/20/21 04:21 Additional Labs: Accuchecks 01/18/21 01/18/21 01/17/21 10:56 04:14 21:17 POC Glucose 125 H 112 H 131 H 01/17/21 16:37 POC Glucose 127 H Radiology Reviewed by me: Yes EKG Reviewed by me: Yes Hospitalist ROS - Review of Systems ROS unobtainable: due to mental status Gastrointestinal: reports: nausea Skin: reports: rash Neurological: reports: weakness - Medication Medications: Active Medications Generic Name Dose Route Start Last Admin Trade Name Freq PRN Reason Stop Dose Admin Acetaminophen 650 mg 01/15/21 01:47 01/17/21 20:47 Acetaminophen 325 Mg Tab PO 650 mg Q4H PRN Administration Headache/Fever/Mild Pain (1-3) Finasteride 5 mg 01/16/21 21:00 01/17/21 20:49 Finasteride 5 Mg Tab PO 5 mg HS NEL Administration Furosemide 20 mg 01/18/21 14:00 01/18/21 15:20 Furosemide 20 Mg/2 Ml Vial SLOW IVP 20 mg 0600,1400 NEL Administration Gabapentin 100 mg 01/16/21 21:00 01/18/21 11:08 Gabapentin 100 Mg Cap PO 100 mg TID NEL Administration Iron/Minerals/Multivitamins 1 tab 01/17/21 09:00 01/18/21 11:09 Multivitamin W/ Minerals 1 Tab PO 1 tab DAILY NEL Administration Lidocaine 1 patch 01/17/21 09:00 01/18/21 11:07 Lidocaine 5% Patch TD 1 patch DAILY NEL Administration Lisinopril 40 mg 01/17/21 21:00 01/17/21 20:50 Lisinopril 20 Mg Tab PO 40 mg QPM NEL Administration Loratadine 10 mg 01/18/21 09:00 01/18/21 11:09 Loratadine 10 Mg Tab PO 10 mg DAILY NEL Administration Miscellaneous Medication 1 each 01/17/21 21:00 01/17/21 20:51 Lidocaine Patch Removal TOP 1 each HS NEL Administration Pantoprazole Sodium 40 mg 01/16/21 21:00 01/17/21 20:51 Pantoprazole 40 Mg Tab PO 40 mg HS NEL Administration Polyethylene Glycol 17 gm 01/17/21 09:00 01/18/21 11:08 Polyethylene Glycol 3350 17 Gm Packet PO 17 gm DAILY NEL Administration Primidone 250 mg 01/15/21 09:00 01/18/21 11:04 Primidone 50 Mg Tab PO Not Given BID NEL Primidone 250 mg 01/17/21 12:00 01/18/21 11:29 Primidone 250 Mg Tab PO 250 mg 1200 NEL Administration Tamsulosin HCl 0.4 mg 01/15/21 21:00 01/17/21 20:50 Tamsulosin Hcl 0.4 Mg Cap PO 0.4 mg HS NEL Administration Hospitalist Exam Vitals: Vital Signs (12 hours) Temp Pulse Pulse Pulse Resp BP BP 01/18/21 10:56 98.8 F 60 16 01/18/21 10:38 97.7 F 60 16 01/18/21 09:36 60 60 162/80 H 159/70 H 01/18/21 04:00 98.8 F 63 20 BP Pulse Ox 01/18/21 10:56 160/73 H 100 01/18/21 10:38 162/80 H 100 01/18/21 09:36 01/18/21 04:00 162/51 H Weight Weight 177 lb 0.146 oz General Appearance: NAD, awake alert, ill appearing Eye: PERRL, anicteric sclera ENT: normocephalic atraumatic, no oropharyngeal lesions Neck: supple, symmetric, no JVD, no thyromegaly Heart: RRR, no murmur, no gallops, no rubs Gastrointestinal: soft, non-tender, non-distended Psychiatric: normal affect, normal behavior, somnolent Hosp A/P (1) AMS (altered mental status) Code(s): R41.82 - ALTERED MENTAL STATUS, UNSPECIFIED Status: Acute Qualifiers: Altered mental status type: disorientation Qualified Code(s): R41.0 - Disorientation, unspecified (2) NSTEMI (non-ST elevated myocardial infarction) Code(s): I21.4 - NON-ST ELEVATION (NSTEMI) MYOCARDIAL INFARCTION Status: Acute (3) ISAC (acute kidney injury) Code(s): N17.9 - ACUTE KIDNEY FAILURE, UNSPECIFIED Status: Acute (4) Chronic atrial fibrillation Code(s): I48.20 - CHRONIC ATRIAL FIBRILLATION, UNSPECIFIED Status: Chronic (5) DM2 (diabetes mellitus, type 2) Status: Chronic Qualifiers: Diabetes mellitus termite treater insulin use: without termite treater use - Plan PT/OT, respiratory therapy, incentive spirometry
[2021-01-18] MEDS: hydrOXYzine 25 MG TAB PO PRN (17:24)
[2021-01-18] MEDS: Tamsulosin HCl 0.4 MG CAP PO SCH (21:54)
[2021-01-18] MEDS: Lisinopril 20 MG TAB PO SCH (21:56)
[2021-01-18] MEDS: Finasteride 5 MG TAB PO SCH (21:57)
[2021-01-18] MEDS: Lidocaine Patch Removal TOP SCH (21:57)
[2021-01-19 05:34] LABS: Anion Gap 11 mmol/L (10-20); BUN (Urea Nitrogen) 26 mg/dL (8.4-25.7); Calc. Creatinine Clearance 71 mL/min (70-130); Calcium 8.6 mg/dL (7.8-10.44); Carbon Dioxide 26 mmol/L (23-31); Chloride 99 mmol/L (98-107); Glucose 112 mg/dL (83-110); Potassium 4.3 mmol/L (3.5-5.1); Sodium 132 mmol/L (136-145)
[2021-01-19] MEDS: Furosemide 20 MG/2 ML VIAL SLOW IVP SCH ×2 (06:44→14:48)
--- NOTE | 2021-01-19 09:26 | RAD ---
EXAM: Single view of the chest HISTORY: Shortness of breath COMPARISON: 01/14/2021 FINDINGS: Single view of the chest shows an enlarged but stable cardiomediastinal silhouette. Athero sclerotic calcifications are seen in the aorta. Diffuse increased interstitial markings are present. There is obscurity of the left hemidiaphragm which may represent left basilar atelectasis or an infiltrate. No acute osseous abnormality. IMPRESSION: Left basilar atelectasis versus infiltrate.
[2021-01-19] MEDS: Polyethylene Glycol 3350 17 GM Packet PO SCH (09:41)
[2021-01-19] MEDS: Lidocaine 5% Patch TD SCH (09:41)
[2021-01-19] MEDS: Carvedilol 6.25 MG TAB PO SCH ×2 (09:42→17:21)
[2021-01-19] MEDS: Loratadine 10 MG TAB PO SCH (09:43)
[2021-01-19] MEDS: Multivitamin W/ Minerals 1 TAB PO SCH (09:43)
[2021-01-19] MEDS: Primidone 250 MG TAB PO SCH (10:54)
[2021-01-19] MEDS: Primidone 50 MG TAB PO SCH ×2 (10:55→21:00)
--- NOTE | 2021-01-19 16:25 | PDOC.HOSPP ---
- Subjective Encounter Date: 01/19/21 Encounter Time: 16:25 Subjective: His blood cultures is now growing Staphylococcus capitis. He was previously on doxycycline and cefepime. I suspect these are not accurate cultures. This may be contaminants. However he did complete 5 days of doxycycline and cefepime. - Objective Vital Signs & Weight: Vital Signs (12 hours) Temp Pulse Resp BP BP Pulse Ox 01/19/21 10:40 97.8 F 60 18 120/57 L 100 01/19/21 09:42 152/65 H 01/19/21 07:22 97.9 F 60 20 152/65 H 99 Weight Weight 172 lb 6.4 oz I&O: 01/18/21 01/19/21 01/20/21 06:59 06:59 06:59 Intake Total 750 1050 Output Total 100 Balance 750 950 Result Diagrams: 01/17/21 08:30 01/20/21 04:21 Additional Labs: Accuchecks 01/19/21 01/19/21 01/18/21 10:40 04:19 20:03 POC Glucose 140 H 113 H 160 H 01/18/21 16:33 POC Glucose 93 Radiology Reviewed by me: Yes EKG Reviewed by me: Yes Hospitalist ROS - Review of Systems Constitutional: reports: weakness Respiratory: reports: shortness of breath, SOB with excertion Skin: reports: rash, bruising - Medication Medications: Active Medications Generic Name Dose Route Start Last Admin Trade Name Freq PRN Reason Stop Dose Admin Acetaminophen 650 mg 01/15/21 01:47 01/17/21 20:47 Acetaminophen 325 Mg Tab PO 650 mg Q4H PRN Administration Headache/Fever/Mild Pain (1-3) Carvedilol 12.5 mg 01/18/21 17:00 01/19/21 09:42 Carvedilol 6.25 Mg Tab PO 12.5 mg BID-WM NEL Administration Finasteride 5 mg 01/16/21 21:00 01/18/21 21:57 Finasteride 5 Mg Tab PO 5 mg HS NEL Administration Furosemide 20 mg 01/18/21 14:00 01/19/21 14:48 Furosemide 20 Mg/2 Ml Vial SLOW IVP 20 mg 0600,1400 NEL Administration Hydroxyzine HCl 12.5 mg 01/17/21 17:44 01/18/21 17:24 Hydroxyzine 25 Mg Tab PO 12.5 mg Q8H PRN Administration Itching Iron/Minerals/Multivitamins 1 tab 01/17/21 09:00 01/19/21 09:43 Multivitamin W/ Minerals 1 Tab PO 1 tab DAILY NEL Administration Lidocaine 1 patch 01/17/21 09:00 01/19/21 09:41 Lidocaine 5% Patch TD 1 patch DAILY NLE Administration Lisinopril 40 mg 01/17/21 21:00 01/18/21 21:56 Lisinopril 20 Mg Tab PO 40 mg QPM NEL Administration Loratadine 10 mg 01/18/21 09:00 01/19/21 09:43 Loratadine 10 Mg Tab PO 10 mg DAILY NEL Administration Miscellaneous Medication 1 each 01/17/21 21:00 01/18/21 21:57 Lidocaine Patch Removal TOP 1 each HS NEL Administration Pantoprazole Sodium 40 mg 01/16/21 21:00 01/18/21 21:55 Pantoprazole 40 Mg Tab PO 40 mg HS NEL Administration Polyethylene Glycol 17 gm 01/17/21 09:00 01/19/21 09:41 Polyethylene Glycol 3350 17 Gm Packet PO 17 gm DAILY NEL Administration Primidone 250 mg 01/15/21 09:00 01/19/21 10:55 Primidone 50 Mg Tab PO Not Given BID NEL Primidone 250 mg 01/17/21 12:00 01/19/21 10:54 Primidone 250 Mg Tab PO 250 mg 1200 NEL Administration Senna/Docusate Sodium 1 tab 01/16/21 15:44 01/19/21 14:47 Senokot S 8.6-50 Mg Tab PO 1 tab DAILYPRN PRN Administration Constipation Tamsulosin HCl 0.4 mg 01/15/21 21:00 01/18/21 21:54 Tamsulosin Hcl 0.4 Mg Cap PO 0.4 mg HS NEL Administration Hospitalist Exam Vitals: Vital Signs (12 hours) Temp Pulse Resp BP BP Pulse Ox 01/19/21 10:40 97.8 F 60 18 120/57 L 100 01/19/21 09:42 152/65 H 01/19/21 07:22 97.9 F 60 20 152/65 H 99 Weight Weight 172 lb 6.4 oz General Appearance: NAD, awake alert Eye: PERRL, anicteric sclera ENT: normocephalic atraumatic, no oropharyngeal lesions Neck: supple, symmetric, no JVD, no thyromegaly Heart: RRR, no murmur, no gallops, no rubs Respiratory: CTAB, no wheezes, no rales Gastrointestinal: soft, non-tender, non-distended, normal bowel sounds Neurological: cranial nerve grossly intact, normal sensation to touch Psychiatric: normal affect, normal behavior, A&O x 3 Hosp A/P (1) AMS (altered mental status) Code(s): R41.82 - ALTERED MENTAL STATUS, UNSPECIFIED Status: Acute Qualifiers: Altered mental status type: disorientation Qualified Code(s): R41.0 - Disorientation, unspecified (2) NSTEMI (non-ST elevated myocardial infarction) Code(s): I21.4 - NON-ST ELEVATION (NSTEMI) MYOCARDIAL INFARCTION Status: Acute (3) ISAC (acute kidney injury) Code(s): N17.9 - ACUTE KIDNEY FAILURE, UNSPECIFIED Status: Acute (4) Chronic atrial fibrillation Code(s): I48.20 - CHRONIC ATRIAL FIBRILLATION, UNSPECIFIED Status: Chronic (5) DM2 (diabetes mellitus, type 2) Status: Chronic Qualifiers: Diabetes mellitus oysterman insulin use: without oysterman use Diabetes mellitus complication status: without complication Qualified Code(s): E11.9 - Type 2 diabetes mellitus without complications - Plan old records reviewed/req, PT/OT, respiratory therapy, incentive spirometry
[2021-01-19] MEDS: hydrOXYzine 25 MG TAB PO PRN (17:25)
[2021-01-19] MEDS: Lidocaine Patch Removal TOP SCH (21:00)
[2021-01-19] MEDS: Tamsulosin HCl 0.4 MG CAP PO SCH (21:55)
[2021-01-19] MEDS: Lisinopril 20 MG TAB PO SCH (21:55)
[2021-01-19] MEDS: Finasteride 5 MG TAB PO SCH (21:55)
[2021-01-20 05:09] LABS: Anion Gap 12 mmol/L (10-20); BUN (Urea Nitrogen) 22 mg/dL (8.4-25.7); Calc. Creatinine Clearance 67 mL/min (70-130); Calcium 8.3 mg/dL (7.8-10.44); Carbon Dioxide 27 mmol/L (23-31); Chloride 97 mmol/L (98-107); Glucose 109 mg/dL (83-110); Potassium 3.7 mmol/L (3.5-5.1); Sodium 132 mmol/L (136-145)
[2021-01-20] MEDS: Furosemide 20 MG/2 ML VIAL SLOW IVP SCH ×2 (08:19→13:31)
[2021-01-20] MEDS: Polyethylene Glycol 3350 17 GM Packet PO SCH (08:19)
[2021-01-20] MEDS: Carvedilol 6.25 MG TAB PO SCH (08:19)
[2021-01-20] MEDS: Lidocaine 5% Patch TD SCH (08:27)
[2021-01-20] MEDS: Multivitamin W/ Minerals 1 TAB PO SCH (08:27)
[2021-01-20] MEDS: Loratadine 10 MG TAB PO SCH (08:27)
[2021-01-20] MEDS: Primidone 250 MG TAB PO SCH (09:40)
[2021-01-20] MEDS: Primidone 50 MG TAB PO SCH (09:56)
--- NOTE | 2021-01-20 14:35 | PDOC.DS.DS ---
Provider Date of Admission: 01/15/21 01:11 Date of Discharge: 01/20/21 Admitting Provider: Paul Harp MD Consultations: Cardiology Primary Care Physician: Unknown Course Hospital Course: This is an 89-year-old who was admitted to the hospital for altered mental status. He is a resident of an assisted living facility. Note nursing staff found him sitting on the toilet appearing to be confused and he was brought here to be evaluated. He was felt to be septic on admission secondary to pulmonary source. There was a suspected pneumonia on the left lung. He was placed on empiric antibiotic and cultures were collected. His blood cultures collected the grew out staph capitis and he was treated appropriately with intravenous antibiotics. He was seen briefly by cardiology services due to his troponin being elevated but the patient really did not complain about any chest pain. They did interrogate his BiV -ICD and everything appeared to be working properly. Other pertinent information is that during this visit patient was seen to have multiple macular rashes involving his upper and lower extremity. When I spoke with the family it appeared that this has been ongoing for the past couple months. The patient has had quite extensive evaluations in the past through his primary care provider. He was given Atarax which helped with the itching associated with the rash. The patient otherwise has done very well during this visit and is being discharged back to his assisted living facility today. I spoke to the patient's daughter and updated her about the plan of care. Resuscitation Status: 01/15/21 01:47 Resuscitation Status Routine Co-Sign Provider: Resuscitation Status: FULL: Full Resuscitation Discussed with: patient Lab Results: 01/17/21 08:30 01/20/21 04:21 Abnormal Lab Results - Last 48 hrs 01/19/21 04:40: Sodium 132 L, BUN 26 H 01/20/21 04:21: Sodium 132 L, Chloride 97 L Microbiology - Entire Visit 01/14/21 22:55 Venous blood - Right Arm Blood Culture - Final Staphylococcus capitis Staphylococcus capitis#2 01/14/21 22:55 Venous blood - Left Arm Blood Culture - Final Staphylococcus epidermidis 01/15/21 01:00 Urine Straight Catheter Urine Culture - Final NO GROWTH AT 36 HOURS Vitals: Vital Signs (12 hours) Temp Pulse Pulse Pulse Resp BP BP 01/20/21 10:40 99 82 142/64 H 01/20/21 08:19 128/60 01/20/21 08:00 98.3 F 60 16 01/20/21 03:56 97.5 F L 60 19 BP BP Pulse Ox 01/20/21 10:40 130/63 01/20/21 08:19 01/20/21 08:00 128/60 97 01/20/21 03:56 117/57 L 99 Weight Weight 163 lb 14.4 oz Physical Exam: The patient was seen and examined on the day of discharge. General Appearance: NAD, awake alert Eye: PERRL, anicteric sclera ENT: normocephalic atraumatic, no oropharyngeal lesions Neck: supple, symmetric, no JVD, no thyromegaly Respiratory: CTAB, no wheezes, no rales, no ronchi, normal chest expansion Cardiovascular: RRR, no murmur, no gallops, no rubs, normal peripheral pulses Gastrointestinal: soft, non-tender, non-distended, normal bowel sounds Extremities: no cyanosis, no clubbing Skin: normal turgor Neurological: cranial nerve grossly intact Musculoskeletal: normal tone PSYCH: normal affect, normal behavior, A&O x 3 Problem (1) AMS (altered mental status) Code(s): R41.82 - ALTERED MENTAL STATUS, UNSPECIFIED Status: Acute Qualifiers: Altered mental status type: disorientation Qualified Code(s): R41.0 - Disorientation, unspecified (2) NSTEMI (non-ST elevated myocardial infarction) Code(s): I21.4 - NON-ST ELEVATION (NSTEMI) MYOCARDIAL INFARCTION Status: Acute (3) ISAC (acute kidney injury) Code(s): N17.9 - ACUTE KIDNEY FAILURE, UNSPECIFIED Status: Acute (4) Chronic atrial fibrillation Code(s): I48.20 - CHRONIC ATRIAL FIBRILLATION, UNSPECIFIED Status: Chronic (5) DM2 (diabetes mellitus, type 2) Status: Chronic Qualifiers: Diabetes mellitus 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 insulin use: without usp use Diabetes mellitus complication status: without complication Qualified Code(s): E11.9 - Type 2 diabetes mellitus without complications Time Spent in discharge related activities (mins): 30 Plan Home Medications: Medication Instructions Recorded Confirmed Type RX: Tamsulosin HCl [Flomax] 0.4 mg PO HS 05/06/14 01/16/21 History RX: traMADol HCl [Tramadol HCl] 50 mg PO Q6H 05/13/14 01/16/21 History RX: Finasteride 5 mg PO HS 05/21/18 01/16/21 History RX: Primidone 125 mg PO BID 05/21/18 01/16/21 History RX: Carvedilol [Coreg] 6.25 mg PO BID 12/11/18 01/16/21 History RX: Furosemide [Lasix] 20 mg PO BID 12/11/18 01/16/21 History RX: Lisinopril [Zestril] 40 mg PO QPM 12/11/18 01/16/21 History RX: Bisacodyl [Dulcolax] 5 mg PO DAILY PRN 09/10/20 01/16/21 History RX: Cinnamon Bark [Cinnamon] 1,000 mg PO DAILY 09/10/20 01/16/21 History RX: Multivit-Min/FA/Lycopen/Lutein 1 each PO DAILY 09/10/20 01/16/21 History [Centrum Silver Tablet] RX: Acetaminophen [Tylenol Extra 1,000 mg PO Q6HR tab 09/12/20 01/16/21 Rx Strength] RX: Polyethylene Glycol 3350 17 gm PO DAILY pk 09/12/20 01/16/21 Rx [Miralax] RX: Amlodipine Besylate 5 mg PO DAILY 01/16/21 01/16/21 History [amLODIPine Besylate] RX: Cetirizine HCl [Zyrtec] 10 mg PO HS 01/16/21 01/16/21 History RX: Cyclobenzaprine [Flexeril] 10 mg PO Q8HR PRN 01/16/21 01/16/21 History RX: Gabapentin [Neurontin] 100 mg PO TID 01/16/21 01/16/21 History RX: Lidocaine 5% Patch [Lidoderm 1 patch TD DAILY 01/16/21 01/16/21 History 5% Patch] RX: Metolazone 2.5 mg PO Q8HR PRN 01/16/21 01/16/21 History RX: Omeprazole 20 mg PO HS 01/16/21 01/16/21 History RX: Primidone 250 mg PO 1200 01/16/21 01/16/21 History RX: Sennosides/Docusate Sodium 1 tab PO PRN PRN 01/16/21 01/16/21 History [Senokot S] RX: Simethicone 80 mg PO Q6HR PRN 01/16/21 01/16/21 History RX: Lidocaine Patch Removal 1 each TOP HS each 01/20/21 Rx RX: Ondansetron [Zofran ODT] 4 mg PO Q6H PRN tab 01/20/21 Rx RX: traMADol HCl [Ultram] 50 mg PO Q6H PRN tab 01/20/21 Rx Allergies: codeine Allergy (Verified 01/15/21 05:35) Hives meperidine HCl [From Demerol] Allergy (Verified 01/15/21 05:35) BP dropped pt states had rash reaction as a child oxycodone HCl [From Percodan] Allergy (Verified 01/15/21 05:35) Rash oxycodone terephthalate [From Percodan] Allergy (Verified 01/15/21 05:35) Rash Sulfa (Sulfonamide Antibiotics) Allergy (Verified 01/15/21 05:35) Activity:: Activity as Tolerated Nourishment:: Heart Healthy Diet Referrals: Cardiac Rehab - [place] [Outside] - 7 Days (Your doctor has ordered outpatient cardiac rehab for you to begin within 1-2 weeks after you go home from the hospital. The location nearest to you is the [facility]. The front office in [place] will call you in 3-5 days to get you scheduled for your evaluation. If you do not receive a call, please reach out to us at [phone] and request an appointment. ) [facility] [Outside] Unknown,Unknown [Primary Care Provider] - Disposition: USP/ASSISTED LIVING Quality CORE MEASURES:: N/A
[2021-01-20 14:57] VITALS: BP 144/67; TEMP 97.7
== END 2021-01-20 16:15 | DRG 871 ==
LOC: ERS 22:21 → 2SW 01-15 01:11
PROVIDERS: ADMIT Student in an Organized Health Care Education/Training Program; ATTEND Hospitalist
DX: A41.9 Sepsis, unspecified organism (principal); I21.A1 Myocardial infarction type 2; J18.9 Pneumonia, unspecified organism; I42.9 Cardiomyopathy, unspecified; N17.9 Acute kidney failure, unspecified; I48.20 Chronic atrial fibrillation, unspecified; E11.9 Type 2 diabetes mellitus without complications; I48.91 Unspecified atrial fibrillation; I11.0 Hypertensive heart disease with heart failure; Z20.822 Contact with and (suspected) exposure to COVID-19; I50.9 Heart failure, unspecified; N40.0 Benign prostatic hyperplasia without lower urinary tract symptoms; Z79.01 Long term (current) use of anticoagulants; Z88.2 Allergy status to sulfonamides; Z95.0 Presence of cardiac pacemaker; Z88.5 Allergy status to narcotic agent; Z88.8 Allergy status to other drugs, medicaments and biological substances; Z79.899 Other long term (current) drug therapy
CPT/HCPCS: 0240U; 36415; 36416; 51701; 70450; 71045; 71275; 76770; 80048; 80053; 80061; 81003; 82330; 82553; 82803; 83605; 83735; 83880; 84145; 84443; 84484; 85007; 85025; 85027; 85379; 87040; 87077; 87086; 87149; 93005; 93306; 94760; 96365; 96367; 97139; J0456; J0692; J0696; J1940; J3490; Q9967